=== PATIENT | female | born 1980 | race African-American/Black ===

== ENCOUNTER 2017-03-02 22:14 | Emergency (ER) | payer OTHER ==
[~2017-03-02] VITALS: Ht 160 cm; Wt 72.6 kg
[~2017-03-02 22:14] MED LIST: ALBU2.5V14 NEB; CHLO25CA9 PO; FLUT100D IH; MAGN400T22 PO; ONDA4TAB10 SL; PANT40TA5 PO; VENTOLIN HFA18 GM INH
[2017-03-02 22:20] VITALS: BP 130/72
--- NOTE | 2017-03-02 23:20 | PHYS DOC ---
Past Medical History Past Medical History: Asthma, Seizure Past Surgical History: No Surgical History Alcohol Use: Heavy Drug Use: None Adult General Chief Complaint Chief Complaint: VAGINAL BLEEDING HPI HPI Patient is a 36 year old female who presents requesting test. She states her LMP was 516. States she took a home test was positive but she wants to confirm whether that is true. She is . Reports vaginal spotting 2 weeks ago. Denies fevers/chills, nausea/vomiting, abdominal pain, current vaginal bleeding, dysuria/hematuria. Review of Systems Review of Systems Constitutional: Denies fever or chills Respiratory: Denies cough or shortness of breath Cardiovascular: Denies chest pain or edema GI: Denies abdominal pain, nausea, vomiting, or diarrhea : Denies dysuria or hematuria Musculoskeletal: Denies back pain Integument: Denies rash or skin lesions Neurologic: Denies headache Allergies Allergies Allergies Coded Allergies Type Severity Reaction Last Updated Verified No Known Drug Allergies 12/02/15 No Physical Exam Physical Exam Constitutional: Well developed, well nourished, no acute distress, non-toxic appearance. HENT: Normocephalic, atraumatic Eyes: conjunctiva normal, no discharge. Cardiovascular: RRR, no murmurs, no edema. Lungs & Thorax: LCTAB, no wheezing, no respiratory distress. Abdomen: soft, nontender, nondistended. Skin: Warm, dry, no erythema, no rash. Back: No CVA tenderness. Extremities: No tenderness, no edema. Neurologic: Alert and oriented X 3 Current Patient Data Vital Signs Vital Signs Date Time Temp Pulse Resp B/P (MAP) Pulse Ox O2 Delivery O2 Flow Rate FiO2 03/02/17 22:20 98.2 103 18 130/72 (91) 97 Room Air 98.2 Lab Values Laboratory Tests Test 03/02/17 21:35 POC Urine HCG, Qualitative Hcg positive (Negative) EKG EKG [] Radiology/Procedures Radiology/Procedures [] Course & Med Decision Making Course & Med Decision Making Pertinent Labs and Imaging studies reviewed. (See chart for details) The patient presents requesting test. She had positive urine test here. Asymptomatic otherwise. Discussed results, recommend vitamin & follow up in OB clinic with Dr. Thacker for routine care. Come back for severe pain, uncontrolled vomiting, heavy bleeding requiring >1 pad per hour, any otherwise worsening condition. Discharged home in stable condition. [] Dragon Disclaimer Dragon Disclaimer This electronic medical record was generated, in whole or in part, using a voice recognition dictation system. Departure Departure Impression: Primary Impression: Positive test Disposition: HOME, SELF-CARE Condition: STABLE Referrals: GRANT THACKER MD Patient Instructions: - First Trimester, [id number] Additional Instructions: You were seen in the emergency department today for test which was positive. Take vitamins and follow-up with Dr. Thacker in the OB clinic. Return to the emergency department for severe pain, uncontrolled vomiting, heavy bleeding requiring greater than 1 pad per hour, any otherwise worsening condition. GAY BALDERRAMA MD Mar 02, 2017 23:20
== END 2017-03-02 23:40 | disposition home or self-care (01) ==
LOC: ER 22:14
DX: Z32.01 Encounter for pregnancy test, result positive (principal); J45.909 Unspecified asthma, uncomplicated
CPT/HCPCS: 81025; 99282

== ENCOUNTER 2017-05-30 09:44 | Inpatient (IN) | payer OTHER ==
[~2017-05-30] VITALS: Ht 160 cm; Wt 74.8 kg
[2017-05-30] MEDS ORDERED: IV NORMAL SALINE 1000ML BAG 1,000 ML IV SCH (10:15)
[2017-05-30] MEDS ORDERED: ONDANSETRON PF 4 MG/2 ML VIAL. IV ONE (10:15)
[2017-05-30] MEDS ORDERED: IV NORMAL SALINE 1000ML BAG 1,000 ML IV ONE (10:30)
--- NOTE | 2017-05-30 10:36 | PHYS DOC ---
Past Medical History Past Medical History: Asthma, Seizure Past Surgical History: No Surgical History Alcohol Use: Sober Drug Use: None Social History Narrative: NOT CURRENTLY DRINKING DUE TO Adult General Chief Complaint Chief Complaint: ABDOMINAL PAIN IN HPI HPI Patient is a 36 year old female who presents with complaint of lower abdominal pain. Patient states that her symptoms started last night and have been worsening since then. Patient states that she is approximately 19 weeks at this time. Patient states that she was admitted to [facility] 2 weeks ago for similar symptoms. Patient states that she has been struggling with vomiting during her current . Patient states that her lower abdominal pain is crampy and rates it 8 out of 10 currently. Patient denies any associated fevers, vaginal bleeding, or abnormal discharge. The patient follows at [facility] for her care. Patient has not been able to tolerate solid or liquid oral intake over the past few days. Review of Systems Review of Systems Constitutional: Generalized fatigue, denies fever or chills [] Eyes: Denies change in visual acuity, redness, or eye pain [] HENT: Denies nasal congestion or sore throat [] Respiratory: Denies cough or shortness of breath [] Cardiovascular: Denies chest pain or edema[] GI: Abdominal pain, nausea, vomiting, denies bloody stools or diarrhea [] : Denies dysuria or hematuria [] Musculoskeletal: Denies back pain or joint pain [] Integument: Denies rash or skin lesions [] Neurologic: Denies headache, focal weakness or sensory changes [] Current Medications Current Medications Current Medications Medications (Trade) Dose Ordered Sig/Kaylin Start Time Stop Time Status Last Admin Dose Admin Acetaminophen (Tylenol) 650 mg PRN Q4HRS PRN 05/30/17 12:30 05/31/17 12:29 Dextrose/Sodium Chloride 1,000 ml @ 125 mls/hr 1X ONCE 05/30/17 12:30 05/30/17 20:29 Ondansetron HCl (Zofran) 4 mg PRN Q8HRS PRN 05/30/17 12:30 05/31/17 12:29 Sodium Chloride 1,000 ml @ 1,000 mls/hr 1X ONCE 05/30/17 10:30 05/30/17 11:29 DC 05/30/17 11:20 1,000 MLS/HR Allergies Allergies Allergies Coded Allergies Type Severity Reaction Last Updated Verified No Known Drug Allergies 12/02/15 No Physical Exam Physical Exam Constitutional: Alert, afebrile, appears ill. [] HENT: Normocephalic, atraumatic, bilateral external ears normal, oropharynx moist, no oral exudates, nose normal. [] Eyes: PERRLA, EOMI, conjunctiva normal, no discharge. [] Neck: Normal range of motion, no tenderness, supple, no stridor. [] Cardiovascular: Tachycardia, regular rhythm, no murmur [] Lungs & Thorax: Bilateral breath sounds clear to auscultation [] Abdomen: Bowel sounds normal, soft, mild suprapubic tenderness to palpation, no guarding or rebound tenderness, no masses, no pulsatile masses. Pelvic: Normal external exam, malodorous discharge in vaginal canal, no bleeding , no cervical motion tenderness, no midline or bilateral adnexal tenderness on bimanual exam[] Skin: Warm, dry, no erythema, no rash. [] Back: No tenderness, no CVA tenderness. [] Extremities: No tenderness, no cyanosis, no clubbing, ROM intact, no edema. [] Neurologic: Alert and oriented X 3, normal motor function, normal sensory function, no focal deficits noted. [] Current Patient Data Vital Signs Vital Signs Date Time Temp Pulse Resp B/P (MAP) Pulse Ox O2 Delivery O2 Flow Rate FiO2 05/30/17 12:26 89 19 138/80 (99) 99 Room Air 05/30/17 10:01 97.7 97.7 Lab Values Laboratory Tests Test 05/30/17 09:53 05/30/17 09:55 05/30/17 10:35 POC Urine HCG, Qualitative Hcg positive (Negative) Urine Collection Type Unknown Urine Color Yellow Urine Clarity Clear Urine pH 6.0 Urine Specific [place] 1.020 Urine Protein 100 mg/dL (NEG-TRACE) Urine Glucose (UA) Negative mg/dL (NEG) Urine Ketones (Stick) >=80 mg/dL (NEG) Urine Blood Small (NEG) Urine Nitrite Negative (NEG) Urine Bilirubin Negative (NEG) Urine Urobilinogen Dipstick 1.0 mg/dL (0.2 mg/dL) Urine Leukocyte Esterase Negative (NEG) Urine RBC 1-2 /HPF (0-2) Urine WBC 1-4 /HPF (0-4) Urine Squamous Epithelial Cells Mod /LPF Urine Bacteria Few /HPF (0-FEW) Urine Mucus Marked /LPF White Blood Count 8.2 x10^3/uL (4.0-11.0) Red Blood Count 3.95 x10^6/uL (3.50-5.40) Hemoglobin 12.6 g/dL (12.0-15.5) Hematocrit 36.5 % (36.0-47.0) Mean Corpuscular Volume 93 fL (79-100) Mean Corpuscular Hemoglobin 32 pg (25-35) Mean Corpuscular Hemoglobin Concent 35 g/dL (31-37) Red Cell Distribution Width 16.7 % (11.5-14.5) H Platelet Count 231 x10^3/uL (140-400) # Neutrophils (%) (Auto) 70 % (31-73) Lymphocytes (%) (Auto) 24 % (24-48) Monocytes (%) (Auto) 5 % (0-9) Eosinophils (%) (Auto) 1 % (0-3) Basophils (%) (Auto) 1 % (0-3) Neutrophils # (Auto) 5.7 x10^3uL (1.8-7.7) Lymphocytes # (Auto) 2.0 x10^3/uL (1.0-4.8) Monocytes # (Auto) 0.4 x10^3/uL (0.0-1.1) Eosinophils # (Auto) 0.0 x10^3/uL (0.0-0.7) Basophils # (Auto) 0.1 x10^3/uL (0.0-0.2) Sodium Level 134 mmol/L (136-145) L Potassium Level 4.4 mmol/L (3.5-5.1) Chloride Level 97 mmol/L (98-107) L Carbon Dioxide Level 10 mmol/L (21-32) *L Anion Gap 27 (6-14) H Blood Urea Nitrogen 5 mg/dL (7-20) L Creatinine 1.0 mg/dL (0.6-1.0) Estimated GFR (Cockcroft-Gault) 76.3 BUN/Creatinine Ratio 5 (6-20) L Glucose Level 83 mg/dL (70-99) Calcium Level 9.1 mg/dL (8.5-10.1) Magnesium Level 1.9 mg/dL (1.8-2.4) Total Bilirubin 1.1 mg/dL (0.2-1.0) H Aspartate Amino Transferase (AST) 48 U/L (15-37) H Alanine Aminotransferase (ALT) 23 U/L (14-59) Alkaline Phosphatase 137 U/L (46-116) H Total Protein 8.3 g/dL (6.4-8.2) H Albumin 3.4 g/dL (3.4-5.0) Albumin/Globulin Ratio 0.7 (1.0-1.7) L Laboratory Tests 05/30/17 10:35 Laboratory Tests 05/30/17 10:35 Microbiology 05/30/17 Wet Prep - Final, Complete EKG EKG Not performed[] Radiology/Procedures Radiology/Procedures Limited bedside ultrasound performed and interpreted by myself: Intrauterine , heart rate 173 bpm, frequent movements.[] Course & Med Decision Making Course & Med Decision Making Pertinent Labs and Imaging studies reviewed. (See chart for details) Patient started on IV fluids and Zofran in the emergency department. After Zofran and 2 L of IV fluids, the patient states that she does not feel much better and is still unable to tolerate oral intake. Patient's lab work is consistent with signs of severe dehydration. The patient's heart rate also appears at the upper limits of normal. The patient will need admission to the hospital for IV fluids and symptomatic control. I spoke with Dr. Muñoz of [facility] who accepted care patient in hospital. Dragon Disclaimer Dragon Disclaimer This electronic medical record was generated, in whole or in part, using a voice recognition dictation system. Departure Departure Impression: Primary Impression: Hyperemesis gravidarum Additional Impression: Dehydration Disposition: ADMITTED INPATIENT Admitting Physician: Other Condition: STABLE Referrals: MANDEEP REED (PCP) Problem Qualifiers KRYSTLE WALL MD May 30, 2017 10:36
[2017-05-30 10:37] LABS: BILIRUBIN,URINE NEGATIVE (NEG); GLUCOSE,URINE NEGATIVE (NEG); NITRITE,URINE NEGATIVE (NEG); PROTEIN,URINE 100 mg/dL (NEG-TRACE)
[2017-05-30 10:45] LABS: SQUAMOUS EPITHELIAL CELL,UR MOD /LPF
[2017-05-30 10:46] LABS: BACTERIA,URINE FEW /HPF (0-FEW)
[2017-05-30 10:52] LABS: BASO # 0.1 x10^3/uL (0.0-0.2); BASO % 1 % (0-3); EOS % 1 % (0-3); HEMATOCRIT 36.5 % (36.0-47.0); HEMOGLOBIN 12.6 g/dL (12.0-15.5); LYMPH % 24 % (24-48); MEAN CORPUSCULAR HEMOGLOBIN 32 pg (25-35); MEAN CORPUSCULAR HGB CONC 35 g/dL (31-37); MEAN CORPUSCULAR VOLUME 93 fL (79-100); MONO % 5 % (0-9); NEUT % 70 % (31-73); PLATELET COUNT 231 x10^3/uL (140-400); RED BLOOD COUNT 3.95 x10^6/uL (3.50-5.40); RED CELL DISTRIBUTION WIDTH 16.7 % (11.5-14.5); WHITE BLOOD COUNT 8.2 x10^3/uL (4.0-11.0)
[2017-05-30 11:04] LABS: ALBUMIN 3.4 g/dL (3.4-5.0); ALBUMIN/GLOBULIN RATIO 0.7 (1.0-1.7); CALCIUM 9.1 mg/dL (8.5-10.1); GFR 76.3; MAGNESIUM 1.9 mg/dL (1.8-2.4); POTASSIUM 4.4 mmol/L (3.5-5.1); TOTAL BILIRUBIN 1.1 mg/dL (0.2-1.0); TOTAL PROTEIN 8.3 g/dL (6.4-8.2)
[2017-05-30] MEDS ORDERED: ONDANSETRON PF 4 MG/2 ML VIAL. IV PRN ×2 (12:30→15:45)
[2017-05-30] MEDS ORDERED: ACETAMINOPHEN 325 MG TABLET. PO PRN (12:30)
[2017-05-30] MEDS ORDERED: IV DEXTROSE 5 %-0.45 % NACL 1,000 ML IV ONE (12:30)
[2017-05-30 15:10] VITALS: BP 118/72
[2017-05-30] MEDS ORDERED: METOCLOPRAMIDE HCL 10 MG/2 ML VIAL. IV PRN (15:45)
--- NOTE | 2017-05-30 16:49 | PDOC1 ---
OB - History Hx of Present Care: Limited Care Ultrasounds: Other (U/S at [facility]. Requesting records.) Obstetrical Complications: Hyperemesis Medical Complications: None Past Family/Social History * Past Medical, Surgical, Family and Obstetric Histories reviewed from chart. Rubella: Unknown RPR/VDRL: Unknown GBS Status: Unknown HBsAG: Unknown OB - Chief Complaint & HPI Date of Admission: Date of Admission: May 30, 2017 at 12:22 Chief Complaint/History : 9 Para: 5 EGA: 19 Reason for admission: observation (hyperemesis) Admission Nurse Assessment Rev: Yes Problems: OB - Admission Exam Physical Exam Vitals: VS - Last 72 Hours, by Label Date Time Temp Pulse Resp B/P (MAP) Pulse Ox O2 Delivery O2 Flow Rate FiO2 05/30/17 14:26 80 19 118/72 (87) 99 Room Air 05/30/17 13:26 79 19 116/76 (89) 99 Room Air 05/30/17 12:45 78 20 94/54 (67) 99 Room Air 05/30/17 12:26 89 20 138/80 (99) 100 Room Air 05/30/17 12:26 89 19 138/80 (99) 99 Room Air 05/30/17 11:54 82 19 132/73 (92) 99 Room Air 05/30/17 10:54 85 18 125/74 (91) 99 Room Air 05/30/17 10:01 97.7 94 18 129/80 (96) 100 Room Air 97.7 05/30/17 09:54 94 18 129/80 (96) 100 Room Air HEENT: Other (dry mucous membranes) Heart: Regular Rate Lungs: Clear Abdomen: Gravid, Non tender, Soft Extremities: No tenderness or swelling Reflexes: Normal Cervical Dilatation: None Effacement: 0% Station: Ballotable Membranes: Intact Heart Rate: Normal Contractions on Admission: None Text A: 19 wks IUP Hyperemesis Gravidarum Grand Multip P: Observation, IV hydration, antiemetics and ice chips. Advance diet tomorrow. TEJAL PLAZA Jr, MD May 30, 2017 16:49
[2017-05-30 20:00] VITALS: BP 114/72
[2017-05-30] MEDS ORDERED: METO10TA81 PO (20:37)
[2017-05-30] MEDS ORDERED: ONDA8TAB9 PO (20:38)
== END 2017-05-30 20:20 | disposition home or self-care (01) | DRG 781 ==
LOC: ER 09:44 → 3 NORTH 12:22
PROVIDERS: ADMIT Obstetrics & Gynecology; ATTEND Obstetrics & Gynecology
DX: O21.0 Mild hyperemesis gravidarum (principal); E86.0 Dehydration; O99.282 Endocrine, nutritional and metabolic diseases complicating pregnancy, second trimester; O99.512 Diseases of the respiratory system complicating pregnancy, second trimester; J45.909 Unspecified asthma, uncomplicated; O09.522 Supervision of elderly multigravida, second trimester; Z3A.19 19 weeks gestation of pregnancy
CPT/HCPCS: 36415; 80053; 81001; 81025; 83735; 85025; 87491; 87591; 96361; 96374; J2405; J7030; Q0111; 99285-25

== ENCOUNTER 2017-11-06 21:59 | Emergency (ER) | payer OTHER ==
[2017-11-06 23:11] LABS: BILIRUBIN,URINE NEGATIVE (NEG); CLARITY,URINE CLEAR; COLOR,URINE YELLOW; GLUCOSE,URINE NEGATIVE (NEG); NITRITE,URINE NEGATIVE (NEG); PH,URINE 6.5; PROTEIN,URINE NEGATIVE (NEG-TRACE)
[2017-11-06 23:19] LABS: BACTERIA,URINE FEW /HPF (0-FEW); SQUAMOUS EPITHELIAL CELL,UR MOD /LPF; WBC,URINE 20-40 /HPF (0-4)
[2017-11-07] MEDS: KETOROLAC 30 MG/ML INJ. IM (00:20)
[2017-11-07] MEDS: CEPHALEXIN 250 MG CAPSULE. PO (00:24)
== END 2017-11-07 00:26 | disposition home or self-care (01) ==
LOC: ER 11-07 00:26
DX: N39.0 Urinary tract infection, site not specified (principal); J45.909 Unspecified asthma, uncomplicated; Z98.890 Other specified postprocedural states
CPT/HCPCS: 81001; 87086; 93005; 96372; 99285-25; J1885

== ENCOUNTER 2018-01-08 12:56 | Emergency (ER) | payer OTHER ==
[2018-01-08] MEDS: IV NORMAL SALINE 1000ML BAG 1,000 ML IV ×2 (13:32→13:34)
[2018-01-08 13:46] LABS: BASO % 1 % (0-3); EOS # 0.1 x10^3/uL (0.0-0.7); EOS % 3 % (0-3); HEMATOCRIT 36.1 % (36.0-47.0); LYMPH # 3.1 x10^3/uL (1.0-4.8); LYMPH % 71 % (24-48); MEAN CORPUSCULAR HEMOGLOBIN 30 pg (25-35); MEAN CORPUSCULAR HGB CONC 33 g/dL (31-37); MEAN CORPUSCULAR VOLUME 90 fL (79-100); MONO # 0.2 x10^3/uL (0.0-1.1); MONO % 5 % (0-9); NEUT # 0.8 x10^3uL (1.8-7.7); NEUT % 19 % (31-73); PLATELET COUNT 259 x10^3/uL (140-400); RED BLOOD COUNT 4.02 x10^6/uL (3.50-5.40); RED CELL DISTRIBUTION WIDTH 21.5 % (11.5-14.5); WHITE BLOOD COUNT 4.3 x10^3/uL (4.0-11.0)
[2018-01-08 13:48] LABS: INR 1.2 (0.8-1.1); PARTIAL THROMBOPLASTIN TIME 30 SEC (24-38); PROTHROMBIN TIME PATIENT 14.2 SEC (11.7-14.0)
[2018-01-08 13:50] LABS: ADD MAN DIFF? YES; ANION GAP 18 (6-14); BLOOD UREA NITROGEN 6 mg/dL (7-20); BUN/CREATININE RATIO 6 (6-20); CALCIUM 9.2 mg/dL (8.5-10.1); CARBON DIOXIDE 21 mmol/L (21-32); CHLORIDE 103 mmol/L (98-107); GFR 75.9; GLUCOSE 95 mg/dL (70-99); POTASSIUM 3.1 mmol/L (3.5-5.1); SODIUM 142 mmol/L (136-145)
[2018-01-08 13:53] LABS: NEG OBC SER NEG; POS OBC SER POS; PREG TEST PT QUAL NEGATIVE (NEG)
[2018-01-08 13:56] LABS: ALBUMIN 3.2 g/dL (3.4-5.0); ALBUMIN/GLOBULIN RATIO 0.7 (1.0-1.7); ALK PHOS 320 U/L (46-116); ALT (SGPT) 141 U/L (14-59); AST (SGOT) 539 U/L (15-37); LIPASE 46 U/L (73-393); MAGNESIUM 1.6 mg/dL (1.8-2.4); TOTAL BILIRUBIN 0.9 mg/dL (0.2-1.0); TOTAL PROTEIN 7.7 g/dL (6.4-8.2)
[2018-01-08 13:58] LABS: TROPONINI < 0.017 ng/mL (0.000-0.055)
[2018-01-08 14:04] LABS: THYROID STIM HORMONE (TSH) 2.017 uIU/mL (0.358-3.74)
[2018-01-08 14:04] LABS: FREE T4 0.77 ng/dL (0.76-1.46)
[2018-01-08 14:05] LABS: CKMB MASS < 0.5 ng/mL (0.0-3.6); CREATINE KINASE 44 U/L (26-192)
[2018-01-08 14:07] LABS: ETHANOL 199 mg/dL (0-10)
[2018-01-08 14:10] LABS: BILIRUBIN,URINE NEGATIVE (NEG); CLARITY,URINE CLEAR; COLOR,URINE YELLOW; GLUCOSE,URINE NEGATIVE (NEG); NITRITE,URINE NEGATIVE (NEG); PROTEIN,URINE 30 mg/dL (NEG-TRACE); UROBILINOGEN,URINE 0.2 mg/dL (0.2 mg/dL)
[2018-01-08 14:13] LABS: BARBITURATES NEG (NEG); BENZODIAZEPINES POS (NEG); CANNABINOIDS NEG (NEG); COCAINE NEG (NEG); METHADONE NEG (NEG); OPIATES NEG (NEG); PHENCYCLIDINE NEG (NEG)
[2018-01-08 14:15] LABS: AMPHETAMINE/METHAMPHETAMINE NEG (NEG); ETHANOL, URINE POS (NEG)
[2018-01-08 14:20] LABS: BACTERIA,URINE FEW /HPF (0-FEW); HYALINE CASTS, URINE FEW /HPF; RBC,URINE 0 /HPF (0-2); SQUAMOUS EPITHELIAL CELL,UR FEW /LPF
[2018-01-08 14:35] LABS: % EOS 4 % (0-5); % LYMPHS 75 % (24-48); % MONOS 2 % (0-10); % SEGS 19 % (35-66)
[2018-01-08 14:37] LABS: ANISOCYTOSIS MOD; PLT ESTIMATE ADEQUATE (ADEQUATE); POLYCHROMASIA SLIGHT
[2018-01-08] MEDS: POTASSIUM CHLORIDE 20 MEQ TABLET.ER. PO (14:45)
[2018-01-08] MEDS: MAGNESIUM OXIDE 400 MG TABLET PO (14:45)
== END 2018-01-08 14:55 | disposition home or self-care (01) ==
LOC: ER 12:56
DX: R00.2 Palpitations (principal); E87.6 Hypokalemia; E83.42 Hypomagnesemia; R79.89 Other specified abnormal findings of blood chemistry; I48.91 Unspecified atrial fibrillation; J45.909 Unspecified asthma, uncomplicated; F10.10 Alcohol abuse, uncomplicated
CPT/HCPCS: 36415; 80053; 80307; 81001; 82553; 83690; 83735; 84439; 84443; 84484; 84703; 85007; 85025; 85610; 85730; 93005; 99285-25; G0480; J7030

== ENCOUNTER 2018-03-21 10:53 | Emergency (ER) | payer OTHER ==
[2018-03-21 11:44] LABS: URINE HCG POC HCG NEGATIVE (Negative)
[2018-03-21 12:09] LABS: ADD MAN DIFF? NO
[2018-03-21 12:13] LABS: BASO # 0.1 x10^3/uL (0.0-0.2); BASO % 1 % (0-3); EOS % 1 % (0-3); HEMATOCRIT 39.2 % (36.0-47.0); HEMOGLOBIN 13.2 g/dL (12.0-15.5); LYMPH # 3.3 x10^3/uL (1.0-4.8); LYMPH % 66 % (24-48); MEAN CORPUSCULAR HEMOGLOBIN 29 pg (25-35); MEAN CORPUSCULAR HGB CONC 34 g/dL (31-37); MEAN CORPUSCULAR VOLUME 85 fL (79-100); MONO # 0.3 x10^3/uL (0.0-1.1); MONO % 7 % (0-9); NEUT # 1.2 x10^3uL (1.8-7.7); NEUT % 25 % (31-73); PLATELET COUNT 247 x10^3/uL (140-400); RED BLOOD COUNT 4.64 x10^6/uL (3.50-5.40); RED CELL DISTRIBUTION WIDTH 20.6 % (11.5-14.5)
[2018-03-21] MEDS: ONDANSETRON PF 4 MG/2 ML VIAL. IV (12:16)
[2018-03-21] MEDS: IV NORMAL SALINE 1000ML BAG 1,000 ML IV (12:16)
[2018-03-21 12:23] LABS: ANION GAP 17 (6-14); BLOOD UREA NITROGEN 10 mg/dL (7-20); BUN/CREATININE RATIO 10 (6-20); CALCIUM 8.7 mg/dL (8.5-10.1); CARBON DIOXIDE 23 mmol/L (21-32); CHLORIDE 101 mmol/L (98-107); GFR 75.9; GLUCOSE 76 mg/dL (70-99); POTASSIUM 3.7 mmol/L (3.5-5.1); SODIUM 141 mmol/L (136-145)
[2018-03-21 12:25] LABS: ETHANOL 245 mg/dL (0-10)
[2018-03-21 12:28] LABS: BILIRUBIN,URINE NEGATIVE (NEG); CLARITY,URINE CLEAR; COLOR,URINE YELLOW; GLUCOSE,URINE NEGATIVE (NEG); NITRITE,URINE NEGATIVE (NEG); PROTEIN,URINE 100 mg/dL (NEG-TRACE); UROBILINOGEN,URINE 0.2 mg/dL (0.2 mg/dL)
[2018-03-21 12:30] LABS: ALBUMIN 3.7 g/dL (3.4-5.0); ALBUMIN/GLOBULIN RATIO 0.9 (1.0-1.7); ALK PHOS 196 U/L (46-116); ALT (SGPT) 97 U/L (14-59); AST (SGOT) 206 U/L (15-37); TOTAL BILIRUBIN 0.6 mg/dL (0.2-1.0); TOTAL PROTEIN 7.9 g/dL (6.4-8.2)
[2018-03-21 12:34] LABS: BARBITURATES POS (NEG); BENZODIAZEPINES NEG (NEG); CANNABINOIDS NEG (NEG); COCAINE NEG (NEG); METHADONE NEG (NEG); OPIATES NEG (NEG); PHENCYCLIDINE NEG (NEG)
[2018-03-21 12:35] LABS: AMPHETAMINE/METHAMPHETAMINE NEG (NEG); ETHANOL, URINE POS (NEG)
[2018-03-21 12:44] LABS: BACTERIA,URINE MODERATE /HPF (0-FEW); HYALINE CASTS, URINE MODERATE /HPF; RBC,URINE 0 /HPF (0-2); SQUAMOUS EPITHELIAL CELL,UR MOD /LPF
[2018-03-21 13:21] LABS: ANISOCYTOSIS SLIGHT; PLT ESTIMATE ADEQUATE (ADEQUATE)
[2018-03-21] MEDS: LORazepam 1 MG TABLET PO (13:50)
== END 2018-03-21 13:55 | disposition home or self-care (01) ==
LOC: ER 10:53
DX: F10.920 Alcohol use, unspecified with intoxication, uncomplicated (principal); F10.230 Alcohol dependence with withdrawal, uncomplicated; J45.909 Unspecified asthma, uncomplicated
CPT/HCPCS: 36415; 80053; 80307; 81001; 81025; 85025; 87086; 96374; 96375; 99284-25; G0480; J2060; J2405; J7030

== ENCOUNTER 2019-07-05 14:44 | Inpatient (IN) | payer OTHER ==
[~2019-07-05] VITALS: Ht 160 cm; Wt 73.5 kg
[2019-07-05 07:45] VITALS: BP 105/65
[~2019-07-05 14:44] MED LIST changes: +CEPH-264 PO; +CIPR250T30 PO; +METO10TA81 PO; +ONDA8TAB9 PO; -PANT40TA5 PO; +PANT40TA77 PO; +TRAZ-86 PO
[2019-07-05] MEDS ORDERED: MULTIVIT INFUSN,ADULT 4,VIT K 10 ML, THIAMINE INJ 100 MG, FOLIC ACID INJ 1 MG in IV NOR... IV ONE (15:00)
[2019-07-05] MEDS ORDERED: ONDANSETRON PF 4 MG/2 ML VIAL. IV ONE (15:00)
[2019-07-05 15:14] LABS: BASO # 0.1 x10^3/uL (0.0-0.2); BASO % 1 % (0-3); EOS # 0.1 x10^3/uL (0.0-0.7); EOS % 2 % (0-3); HEMATOCRIT 42.9 % (36.0-47.0); HEMOGLOBIN 14.3 g/dL (12.0-15.5); LYMPH # 2.1 x10^3/uL (1.0-4.8); LYMPH % 30 % (24-48); MEAN CORPUSCULAR HEMOGLOBIN 31 pg (25-35); MEAN CORPUSCULAR HGB CONC 33 g/dL (31-37); MEAN CORPUSCULAR VOLUME 92 fL (79-100); MONO # 0.2 x10^3/uL (0.0-1.1); MONO % 3 % (0-9); NEUT # 4.4 x10^3/uL (1.8-7.7); NEUT % 64 % (31-73); PLATELET COUNT 164 x10^3/uL (140-400); RED BLOOD COUNT 4.66 x10^6/uL (3.50-5.40); RED CELL DISTRIBUTION WIDTH 13.7 % (11.5-14.5); WHITE BLOOD COUNT 6.9 x10^3/uL (4.0-11.0)
[2019-07-05 15:47] LABS: CALCIUM 9.3 mg/dL (8.5-10.1); CREATININE 0.9 mg/dL (0.6-1.0); GFR 85.2; POTASSIUM 4.1 mmol/L (3.5-5.1)
--- NOTE | 2019-07-05 15:48 | PHYS DOC ---
Past Medical History Past Medical History: Alcoholism, Asthma, Seizure, UTI, Other Additional Past Medical Histor: sepsis, ETOH abuse Past Surgical History: Alcohol Use: Heavy Additional Information: PT SAYS SHE WAS SOBER FOR A YEAR BUT STARTED DRINKING AGAIN 2 WKS AGO. Drug Use: None Adult General Chief Complaint Chief Complaint: WITHDRAWL HPI HPI Patient is a 38 year old female with history of alcoholism, asthma, who presents to the ED today requesting to detox. Patient states she drinks a fifth of a pint of hard liquor every day and stopped 2 days ago in preparation to go to [facility]. She states she started having nausea, vomiting, shaking and headache this morning. Patient denies any suicidal or homicidal ideations. Review of Systems Review of Systems Constitutional: Denies fever or chills [] Eyes: Denies change in visual acuity, redness, or eye pain [] HENT: Denies nasal congestion or sore throat [] Respiratory: Denies cough or shortness of breath [] Cardiovascular: No additional information not addressed in HPI [] GI: Denies abdominal pain, nausea, vomiting, bloody stools or diarrhea [] : Denies dysuria or hematuria [] Musculoskeletal: Denies back pain or joint pain [] Integument: Denies rash or skin lesions [] Neurologic: Denies headache, focal weakness or sensory changes [] Psych: withdrawal symptoms All other systems were reviewed and found to be within normal limits, except as documented in this note. Current Medications Current Medications Current Medications Medications (Trade) Dose Ordered Sig/Kaylin Start Time Stop Time Status Last Admin Dose Admin Lorazepam (Ativan Inj) 1 mg 1X ONCE 07/05/19 15:00 07/05/19 15:01 DC 07/05/19 15:12 1 MG Multivitamins 10 ml/Thiamine HCl 100 mg/Folic Acid 1 mg/Sodium Chloride 1,011.2 ml @ 1,000 mls/ hr 1X ONCE 07/05/19 15:00 07/05/19 16:00 DC 07/05/19 15:12 1,000 MLS/HR Ondansetron HCl (Zofran) 4 mg 1X ONCE 07/05/19 15:00 07/05/19 15:01 DC 07/05/19 15:12 4 MG Allergies Allergies Allergies Coded Allergies Type Severity Reaction Last Updated Verified No Known Drug Allergies 12/02/15 No Physical Exam Physical Exam Constitutional: Well developed, well nourished, no acute distress, non-toxic appearance. [] HENT: Normocephalic, atraumatic, bilateral external ears normal, oropharynx moist, no oral exudates, nose normal. [] Eyes: PERRLA, EOMI, conjunctiva normal, no discharge. [] Neck: Normal range of motion, no tenderness, supple, no stridor. [] Cardiovascular:Heart rate regular rhythm, no murmur [] Lungs & Thorax: Bilateral breath sounds clear to auscultation [] Abdomen: Bowel sounds normal, soft, no tenderness, no masses, no pulsatile masses. [] Skin: Warm, dry, no erythema, no rash. [] Back: No tenderness, no CVA tenderness. [] Extremities: No tenderness, no cyanosis, no clubbing, ROM intact, no edema. [] Neurologic: Alert and oriented X 3, normal motor function, normal sensory function, no focal deficits noted. Cranial nerves II-XII intact Psychologic: flat affect, tear full. Tremors. Current Patient Data Vital Signs Vital Signs Date Time Temp Pulse Resp B/P (MAP) Pulse Ox O2 Delivery O2 Flow Rate FiO2 07/05/19 17:16 88 14 120/69 (86) 97 Room Air 07/05/19 14:45 98.2 98.2 Lab Values Laboratory Tests Test 07/05/19 15:00 White Blood Count 6.9 x10^3/uL (4.0-11.0) Red Blood Count 4.66 x10^6/uL (3.50-5.40) Hemoglobin 14.3 g/dL (12.0-15.5) Hematocrit 42.9 % (36.0-47.0) Mean Corpuscular Volume 92 fL (79-100) Mean Corpuscular Hemoglobin 31 pg (25-35) Mean Corpuscular Hemoglobin Concent 33 g/dL (31-37) Red Cell Distribution Width 13.7 % (11.5-14.5) Platelet Count 164 x10^3/uL (140-400) Neutrophils (%) (Auto) 64 % (31-73) Lymphocytes (%) (Auto) 30 % (24-48) Monocytes (%) (Auto) 3 % (0-9) Eosinophils (%) (Auto) 2 % (0-3) Basophils (%) (Auto) 1 % (0-3) Neutrophils # (Auto) 4.4 x10^3/uL (1.8-7.7) Lymphocytes # (Auto) 2.1 x10^3/uL (1.0-4.8) Monocytes # (Auto) 0.2 x10^3/uL (0.0-1.1) Eosinophils # (Auto) 0.1 x10^3/uL (0.0-0.7) Basophils # (Auto) 0.1 x10^3/uL (0.0-0.2) Sodium Level 141 mmol/L (136-145) Potassium Level 4.1 mmol/L (3.5-5.1) Chloride Level 97 mmol/L (98-107) L Carbon Dioxide Level 21 mmol/L (21-32) Anion Gap 23 (6-14) H Blood Urea Nitrogen 11 mg/dL (7-20) Creatinine 0.9 mg/dL (0.6-1.0) Estimated GFR (Cockcroft-Gault) 85.2 BUN/Creatinine Ratio 12 (6-20) Glucose Level 58 mg/dL (70-99) L Calcium Level 9.3 mg/dL (8.5-10.1) Magnesium Level 1.6 mg/dL (1.8-2.4) L Total Bilirubin 1.4 mg/dL (0.2-1.0) H Aspartate Amino Transferase (AST) 59 U/L (15-37) H Alanine Aminotransferase (ALT) 44 U/L (14-59) Alkaline Phosphatase 126 U/L (46-116) H Total Protein 8.3 g/dL (6.4-8.2) H Albumin 4.3 g/dL (3.4-5.0) Albumin/Globulin Ratio 1.1 (1.0-1.7) Lipase 20 U/L (73-393) L Salicylates Level < 2.8 mg/dL (2.8-20.0) L Salicylate Last Dose Date Unk Salicylate Last Dose Time Unk Acetaminophen Level < 2 mcg/ml (10-30) L Acetaminophen Last Dose Date Unk Acetaminophen Last Dose Time Unk Ethyl Alcohol Level 77 mg/dL (0-10) H Laboratory Tests 07/05/19 15:00 Laboratory Tests 07/05/19 15:00 EKG EKG [] Radiology/Procedures Radiology/Procedures [] Course & Med Decision Making Course & Med Decision Making Pertinent Labs and Imaging studies reviewed. (See chart for details) This is a 38-year-old female patient who presents to the ED today for alcohol withdrawals. Patient stopped using alcohol 2 days ago. Currently has tremors, nausea, vomiting, headaches. CBC-no acute findings, CMP with Mag of 1.6, AST 59, ALT 44, ALK 126, alcohol level 77 Tahira from the PAT assessed patient, she reported hx of seizures during withdrawals. Tahira reports they will find placement for her tomorrow. Spoke with Dr. You who accepted patient for admission. Dragon Disclaimer Dragon Disclaimer This electronic medical record was generated, in whole or in part, using a voice recognition dictation system. Departure Departure Impression: Primary Impression: Alcohol withdrawal Disposition: ADMITTED INPATIENT Condition: STABLE Referrals: NO PCP (PCP) Problem Qualifiers Primary Impression: Alcohol withdrawal Complication of substance-induced condition: uncomplicated Qualified Codes: F10.230 - Alcohol dependence with withdrawal, uncomplicated MARC LYONS EVENTS AND PROMOTIONS ASSISTANT Jul 05, 2019 15:48
[2019-07-05 15:51] LABS: ACETAMIN < 2 mcg/ml (10-30); ETHANOL 77 mg/dL (0-10); SALIC < 2.8 mg/dL (2.8-20.0)
[2019-07-05 15:53] LABS: ALBUMIN 4.3 g/dL (3.4-5.0); ALBUMIN/GLOBULIN RATIO 1.1 (1.0-1.7); MAGNESIUM 1.6 mg/dL (1.8-2.4); TOTAL BILIRUBIN 1.4 mg/dL (0.2-1.0); TOTAL PROTEIN 8.3 g/dL (6.4-8.2)
[2019-07-05 18:51] LABS: BILIRUBIN,URINE NEGATIVE (NEG); COLOR,URINE YELLOW; NITRITE,URINE NEGATIVE (NEG); PROTEIN,URINE 100 mg/dL (NEG-TRACE); UROBILINOGEN,URINE 0.2 mg/dL (0.2 mg/dL)
[2019-07-05 18:54] LABS: BACTERIA,URINE MANY /HPF (0-FEW); CLARITY,URINE HAZY; SQUAMOUS EPITHELIAL CELL,UR FEW /LPF
[2019-07-05 18:55] LABS: RBC,URINE 0 /HPF (0-2)
[2019-07-05 18:58] LABS: BARBITURATES NEG (NEG); BENZODIAZEPINES NEG (NEG); CANNABINOIDS NEG (NEG); COCAINE NEG (NEG); METHADONE NEG (NEG); OPIATES NEG (NEG); PHENCYCLIDINE NEG (NEG)
[2019-07-05 19:01] LABS: AMPHETAMINE/METHAMPHETAMINE NEG (NEG)
--- NOTE | 2019-07-05 19:45 | NUR ---
The patient, DESMOND NAIDU, 38 y/o, F admitted by ALISSA NYE III, DO, was given written information regarding hospital policies, unit procedures and contact persons. Valuables were checked and left with her.
[2019-07-05] MEDS ORDERED: diphenhydrAMINE 50 MG/ML VIAL IVP PRN (21:30)
[2019-07-05] MEDS ORDERED: cloNIDine HCL 0.1 MG TABLET PO PRN (21:30)
[2019-07-05] MEDS ORDERED: HALOPERIDOL LACTATE 5 MG/ML VIAL. IVP PRN (21:30)
[2019-07-05] MEDS ORDERED: LORazepam 1 MG TABLET PO PRN ×2 (21:30)
[2019-07-05] MEDS ORDERED: chlordiazePOXIDE HCL 25 MG CAPSULE PO PRN ×2 (21:30)
[2019-07-05] MEDS: ONDANSETRON PF 4 MG/2 ML VIAL. IV PRN (22:37)
[2019-07-05 23:00] VITALS: BP 121/78
[2019-07-06 03:00] VITALS: BP 118/77
[2019-07-06 05:47] LABS: BASO % 0 % (0-3); EOS # 0.2 x10^3/uL (0.0-0.7); EOS % 4 % (0-3); HEMATOCRIT 34.9 % (36.0-47.0); HEMOGLOBIN 11.8 g/dL (12.0-15.5); LYMPH # 1.6 x10^3/uL (1.0-4.8); LYMPH % 40 % (24-48); MEAN CORPUSCULAR HEMOGLOBIN 31 pg (25-35); MEAN CORPUSCULAR HGB CONC 34 g/dL (31-37); MEAN CORPUSCULAR VOLUME 93 fL (79-100); MONO # 0.2 x10^3/uL (0.0-1.1); MONO % 5 % (0-9); NEUT % 51 % (31-73); PLATELET COUNT 107 x10^3/uL (140-400); RED BLOOD COUNT 3.77 x10^6/uL (3.50-5.40); RED CELL DISTRIBUTION WIDTH 13.6 % (11.5-14.5); WHITE BLOOD COUNT 3.9 x10^3/uL (4.0-11.0)
[2019-07-06 06:13] LABS: ALBUMIN 3.4 g/dL (3.4-5.0); CALCIUM 8.4 mg/dL (8.5-10.1); CREATININE 1.2 mg/dL (0.6-1.0); GFR 61.2; POTASSIUM 4.1 mmol/L (3.5-5.1); TOTAL BILIRUBIN 1.6 mg/dL (0.2-1.0); TOTAL PROTEIN 6.8 g/dL (6.4-8.2)
[2019-07-06 07:00] VITALS: BP 111/72
[2019-07-06] MEDS: MULTIVIT INFUSN,ADULT 4,VIT K 10 ML, THIAMINE INJ 100 MG, FOLIC ACID INJ 1 MG in IV NOR... IV SCH (07:58)
[2019-07-06] MEDS: ONDANSETRON PF 4 MG/2 ML VIAL. IV PRN (08:05)
--- NOTE | 2019-07-06 10:15 | NUR ---
Assumed pt care at this time. Pt in bed sleeping. Call light within reach. Will return to monitor.
[2019-07-06 11:00] VITALS: BP 100/64
--- NOTE | 2019-07-06 12:21 | PDOC1 ---
History and Physical Date of Admission Date of Admission DATE: 07/06/19 TIME: 12:21 History of Present Illness History of Present Illness Patient is a 38 year old female with history of alcoholism, asthma, was intox in ER last night, asking for help. Slept well today, feeling better She states she drinks a fifth of a pint of hard liquor every day and stopped a couple days ago, trying to stop, to f/u at [facility]. yesterady, nausea, vomiting, shaking and headache - overnight, started withdrawl treatment Past Medical History Cardiovascular: No pertinent hx Pulmonary: Asthma Psych: No pertinent hx Renal/: No pertinent hx Past Surgical History Past Surgical History: No pertinent history Family History Family History: Heart Disease Social History Smoke: No ALCOHOL: heavy Drugs: None Current Problem List Problem List Problems Medical Problems: (1) Alcohol withdrawal Status: Acute Current Medications Current Medications Current Medications Ondansetron HCl (Zofran) 4 mg 1X ONCE IV Last administered on 07/05/19at 15:12; Start 07/05/19 at 15:00; Stop 07/05/19 at 15:01; Status DC Lorazepam (Ativan Inj) 1 mg 1X ONCE IV Last administered on 07/05/19at 15:12; Start 07/05/19 at 15:00; Stop 07/05/19 at 15:01; Status DC Multivitamins 10 ml/Thiamine HCl 100 mg/Folic Acid 1 mg/Sodium Chloride 1,011.2 ml @ 1,000 mls/ hr 1X ONCE IV Last administered on 07/05/19at 15:12; Start 07/05/19 at 15:00; Stop 07/05/19 at 16:00; Status DC Ondansetron HCl (Zofran) 4 mg PRN Q8HRS PRN IV NAUSEA/VOMITING Last administered on 07/06/19at 08:05; Start 07/05/19 at 19:00; Stop 07/06/19 at 18:59 Lorazepam (Ativan Inj) 2 mg PRN Q15MIN PRN IV SEE COMMENTS Last administered on 07/05/19at 19:37; Start 07/05/19 at 19:00; Stop 07/06/19 at 08:00; Status DC Multivitamins 10 ml/Thiamine HCl 100 mg/Folic Acid 1 mg/Sodium Chloride 1,011.2 ml @ 100 mls/ hr DAILY IV Last administered on 07/06/19at 07:58; Start 07/06/19 at 09:00; Stop 07/10/19 at 19:07 Multivitamins (Thera M Plus) 1 tab DAILY PO ; Start 07/10/19 at 09:00 Folic Acid (Folic Acid) 1 mg DAILY PO ; Start 07/10/19 at 09:00 Thiamine Mononitrate (Vitamin B-1) 100 mg DAILY PO ; Start 07/10/19 at 09:00 Chlordiazepoxide (Librium) 50 mg PRN Q1HR PRN PO For CIWA 8-14; Start 07/05/19 at 21:30 Chlordiazepoxide (Librium) 100 mg PRN Q1HR PRN PO For CIWA 15 or greater; Start 07/05/19 at 21:30 Lorazepam (Ativan) 4 mg PRN Q1HR PRN PO For CIWA 8-14; Start 07/05/19 at 21:30 Lorazepam (Ativan) 8 mg PRN Q1HR PRN PO For CIWA 15 or greater; Start 07/05/19 at 21:30 Lorazepam (Ativan Inj) 2 mg PRN Q1HR PRN IV For CIWA 8-14 Last administered on 07/06/19at 08:05; Start 07/05/19 at 21:30 Lorazepam (Ativan Inj) 4 mg PRN Q1HR PRN IV For CIWA 15 or greater; Start 07/05/19 at 21:30 Haloperidol Lactate (Haldol Inj) 5 mg PRN Q4HRS PRN IVP Hallucinatns,Confusn,Delirium; Start 07/05/19 at 21:30 Diphenhydramine HCl (Benadryl) 25 mg PRN Q15MIN PRN IVP EPS symptoms 2'Haldol admin; Start 07/05/19 at 21:30 Clonidine HCl (Catapres) 0.1 mg PRN Q1HR PRN PO SBP > 180 or DBP > 100, MRX3; Start 07/05/19 at 21:30 Active Scripts Active Cipro (Ciprofloxacin Hcl) 250 Mg Tablet 500 Mg PO BID 7 Days Pantoprazole Sodium 40 Mg Tablet.dr 40 Mg PO DAILYAC Mag-Oxide (Magnesium Oxide) 400 Mg Tablet 400 Mg PO DAILY Chlordiazepoxide Hcl 25 Mg Capsule 25 Mg PO TID 1 pill tid for 2 days, then 1 pill bid for 2 days Zofran Odt (Ondansetron) 4 Mg Tab.rapdis 1 Tab SL PRN Q8HRS PRN Reported Trazodone Hcl 100 Mg Tablet 100 Mg PO DAILY Zofran (Ondansetron Hcl) 8 Mg Tablet 1 Tab PO Q8HRS Reglan (Metoclopramide Hcl) 10 Mg Tablet 1 Tab PO TID Albuterol Sulfate Conc Neb Soln (Albuterol Sulfate) 2.5 Mg/0.5 Ml Vial.neb 2.5 Mg NEB Flovent 100MCG Diskus (Fluticasone Propionate) 100 Mcg Disk.w.dev 100 Mcg IH Ventolin Hfa Inhaler (Albuterol Sulfate) 18 Gm Hfa.aer.ad 2 Puff INH QID Allergies Allergies: Coded Allergies: No Known Drug Allergies (Unverified , 12/02/15) ROS General: YES: Fatigue; No: Chills, Night Sweats, Malaise, Appetite, Other PSYCHOLOGICAL ROS: YES: Hostility, Irritablity, Sleep disturbances Eyes: No Blurry vision, No Decreased vision, No Double vision, No Dry eyes, No Excessive tearing, No Eye Pain, No Itchy Eyes, No Loss of vision, No Photophobia, No Scotomata, No Uses contacts, No Uses glasses, No Other HEENT: No: Heacaches, Visual Changes, Hearing change, Nasal congestion, Nasal discharge, Oral lesions, Sinus pain, Sore Throat, Epistaxis, Sneezing, Snoring, Tinnitus, Vertigo, Vocal changes, Other Respiratory: No: Cough, Hemoptysis, Orthopnea, Pleuritic Pain, Shortness of breath, SOB with excertion, Sputum Changes, Stridor, Tachypnea, Wheezing, Other Cardiovascular: No Chest Pain, No Palpitations, No Orthopnea, No Paroxysmal Noc. Dyspnea, No Edema, No Lt Headedness, No Other Gastrointestinal: Yes Nausea, Yes Abdominal Pain Genitourinary: No Dysuria, No Frequency, No Incontinence, No Hematuria, No Retention, No Discharge, No Urgency, No Pain, No Flank Pain, No Other, No , No , No , No , No , No , No Musculoskeletal: Yes Joint Pain Neurological: No Behavorial Changes, No Bowel/Bladder ControlChng, No Confusion, No Dizziness, No Gait Disturbance, No Headaches, No Impaired Coord/balance, No Memory Loss, No Numbness/Tingling, No Seizures, No Speech Problems, No Tremors, No Visual Changes, No Weakness, No Other Skin: No Dry Skin, No Eczema, No Hair Changes, No Lumps, No Mole Changes, No Mottling, No Nail Changes, No Pruritus, No Rash, No Skin Lesion Changes, No Other, No Acne Physical Exam General: Alert, Oriented X3, Cooperative, No acute distress HEENT: PERRLA, Mucous membr. moist/pink Lungs: Clear to auscultation Heart: S1S2, RRR, no gallops, no murmurs Abdomen: Normal bowel sounds, Soft Extremities: No cyanosis, No edema, Normal pulses Skin: No significant lesion Neuro: Normal speech, Sensation intact Psych/Mental Status: Mental status NL, Mood NL Vitals Vitals Vital Signs Date Time Temp Pulse Resp B/P (MAP) Pulse Ox O2 Delivery O2 Flow Rate FiO2 07/06/19 11:00 98.9 92 14 100/64 (76) 98 Room Air 98.9 Labs Labs Laboratory Tests Test 07/05/19 15:00 07/05/19 18:45 07/06/19 05:00 White Blood Count 6.9 x10^3/uL (4.0-11.0) 3.9 x10^3/uL (4.0-11.0) Red Blood Count 4.66 x10^6/uL (3.50-5.40) 3.77 x10^6/uL (3.50-5.40) Hemoglobin 14.3 g/dL (12.0-15.5) 11.8 g/dL (12.0-15.5) Hematocrit 42.9 % (36.0-47.0) 34.9 % (36.0-47.0) Mean Corpuscular Volume 92 fL (79-100) 93 fL (79-100) Mean Corpuscular Hemoglobin 31 pg (25-35) 31 pg (25-35) Mean Corpuscular Hemoglobin Concent 33 g/dL (31-37) 34 g/dL (31-37) Red Cell Distribution Width 13.7 % (11.5-14.5) 13.6 % (11.5-14.5) Platelet Count 164 x10^3/uL (140-400) 107 x10^3/uL (140-400) Neutrophils (%) (Auto) 64 % (31-73) 51 % (31-73) Lymphocytes (%) (Auto) 30 % (24-48) 40 % (24-48) Monocytes (%) (Auto) 3 % (0-9) 5 % (0-9) Eosinophils (%) (Auto) 2 % (0-3) 4 % (0-3) Basophils (%) (Auto) 1 % (0-3) 0 % (0-3) Neutrophils # (Auto) 4.4 x10^3/uL (1.8-7.7) 2.0 x10^3/uL (1.8-7.7) Lymphocytes # (Auto) 2.1 x10^3/uL (1.0-4.8) 1.6 x10^3/uL (1.0-4.8) Monocytes # (Auto) 0.2 x10^3/uL (0.0-1.1) 0.2 x10^3/uL (0.0-1.1) Eosinophils # (Auto) 0.1 x10^3/uL (0.0-0.7) 0.2 x10^3/uL (0.0-0.7) Basophils # (Auto) 0.1 x10^3/uL (0.0-0.2) 0.0 x10^3/uL (0.0-0.2) Sodium Level 141 mmol/L (136-145) 138 mmol/L (136-145) Potassium Level 4.1 mmol/L (3.5-5.1) 4.1 mmol/L (3.5-5.1) Chloride Level 97 mmol/L (98-107) 100 mmol/L (98-107) Carbon Dioxide Level 21 mmol/L (21-32) 24 mmol/L (21-32) Anion Gap 23 (6-14) 14 (6-14) Blood Urea Nitrogen 11 mg/dL (7-20) 10 mg/dL (7-20) Creatinine 0.9 mg/dL (0.6-1.0) 1.2 mg/dL (0.6-1.0) Estimated GFR (Cockcroft-Gault) 85.2 61.2 BUN/Creatinine Ratio 12 (6-20) 8 (6-20) Glucose Level 58 mg/dL (70-99) 125 mg/dL (70-99) Calcium Level 9.3 mg/dL (8.5-10.1) 8.4 mg/dL (8.5-10.1) Magnesium Level 1.6 mg/dL (1.8-2.4) Total Bilirubin 1.4 mg/dL (0.2-1.0) 1.6 mg/dL (0.2-1.0) Aspartate Amino Transf (AST/SGOT) 59 U/L (15-37) 72 U/L (15-37) Alanine Aminotransferase (ALT/SGPT) 44 U/L (14-59) 43 U/L (14-59) Alkaline Phosphatase 126 U/L (46-116) 101 U/L (46-116) Total Protein 8.3 g/dL (6.4-8.2) 6.8 g/dL (6.4-8.2) Albumin 4.3 g/dL (3.4-5.0) 3.4 g/dL (3.4-5.0) Albumin/Globulin Ratio 1.1 (1.0-1.7) 1.0 (1.0-1.7) Lipase 20 U/L (73-393) Salicylates Level < 2.8 mg/dL (2.8-20.0) Salicylate Last Dose Date Unk Salicylate Last Dose Time Unk Acetaminophen Level < 2 mcg/ml (10-30) Acetaminophen Last Dose Date Unk Acetaminophen Last Dose Time Unk Ethyl Alcohol Level 77 mg/dL (0-10) Urine Collection Type Unknown Urine Color Yellow Urine Clarity Hazy Urine pH 6.0 Urine Specific [place] 1.020 Urine Protein 100 mg/dL (NEG-TRACE) Urine Glucose (UA) Negative mg/dL (NEG) Urine Ketones (Stick) >=80 mg/dL (NEG) Urine Blood Small (NEG) Urine Nitrite Negative (NEG) Urine Bilirubin Negative (NEG) Urine Urobilinogen Dipstick 0.2 mg/dL (0.2 mg/dL) Urine Leukocyte Esterase Trace (NEG) Urine RBC 0 /HPF (0-2) Urine WBC 1-4 /HPF (0-4) Urine Squamous Epithelial Cells Few /LPF Urine Bacteria Many /HPF (0-FEW) Urine Mucus Mod /LPF Urine Opiates Screen Neg (NEG) Urine Methadone Screen Neg (NEG) Urine Barbiturates Neg (NEG) Urine Phencyclidine Screen Neg (NEG) Urine Amphetamine/Methamphetamine Neg (NEG) Urine Benzodiazepines Screen Neg (NEG) Urine Cocaine Screen Neg (NEG) Urine Cannabinoids Screen Neg (NEG) Urine Ethyl Alcohol Pos (NEG) Laboratory Tests Test 07/05/19 15:00 07/05/19 18:45 07/06/19 05:00 White Blood Count 6.9 x10^3/uL (4.0-11.0) 3.9 x10^3/uL (4.0-11.0) Red Blood Count 4.66 x10^6/uL (3.50-5.40) 3.77 x10^6/uL (3.50-5.40) Hemoglobin 14.3 g/dL (12.0-15.5) 11.8 g/dL (12.0-15.5) Hematocrit 42.9 % (36.0-47.0) 34.9 % (36.0-47.0) Mean Corpuscular Volume 92 fL (79-100) 93 fL (79-100) Mean Corpuscular Hemoglobin 31 pg (25-35) 31 pg (25-35) Mean Corpuscular Hemoglobin Concent 33 g/dL (31-37) 34 g/dL (31-37) Red Cell Distribution Width 13.7 % (11.5-14.5) 13.6 % (11.5-14.5) Platelet Count 164 x10^3/uL (140-400) 107 x10^3/uL (140-400) Neutrophils (%) (Auto) 64 % (31-73) 51 % (31-73) Lymphocytes (%) (Auto) 30 % (24-48) 40 % (24-48) Monocytes (%) (Auto) 3 % (0-9) 5 % (0-9) Eosinophils (%) (Auto) 2 % (0-3) 4 % (0-3) Basophils (%) (Auto) 1 % (0-3) 0 % (0-3) Neutrophils # (Auto) 4.4 x10^3/uL (1.8-7.7) 2.0 x10^3/uL (1.8-7.7) Lymphocytes # (Auto) 2.1 x10^3/uL (1.0-4.8) 1.6 x10^3/uL (1.0-4.8) Monocytes # (Auto) 0.2 x10^3/uL (0.0-1.1) 0.2 x10^3/uL (0.0-1.1) Eosinophils # (Auto) 0.1 x10^3/uL (0.0-0.7) 0.2 x10^3/uL (0.0-0.7) Basophils # (Auto) 0.1 x10^3/uL (0.0-0.2) 0.0 x10^3/uL (0.0-0.2) Sodium Level 141 mmol/L (136-145) 138 mmol/L (136-145) Potassium Level 4.1 mmol/L (3.5-5.1) 4.1 mmol/L (3.5-5.1) Chloride Level 97 mmol/L (98-107) 100 mmol/L (98-107) Carbon Dioxide Level 21 mmol/L (21-32) 24 mmol/L (21-32) Anion Gap 23 (6-14) 14 (6-14) Blood Urea Nitrogen 11 mg/dL (7-20) 10 mg/dL (7-20) Creatinine 0.9 mg/dL (0.6-1.0) 1.2 mg/dL (0.6-1.0) Estimated GFR (Cockcroft-Gault) 85.2 61.2 BUN/Creatinine Ratio 12 (6-20) 8 (6-20) Glucose Level 58 mg/dL (70-99) 125 mg/dL (70-99) Calcium Level 9.3 mg/dL (8.5-10.1) 8.4 mg/dL (8.5-10.1) Magnesium Level 1.6 mg/dL (1.8-2.4) Total Bilirubin 1.4 mg/dL (0.2-1.0) 1.6 mg/dL (0.2-1.0) Aspartate Amino Transf (AST/SGOT) 59 U/L (15-37) 72 U/L (15-37) Alanine Aminotransferase (ALT/SGPT) 44 U/L (14-59) 43 U/L (14-59) Alkaline Phosphatase 126 U/L (46-116) 101 U/L (46-116) Total Protein 8.3 g/dL (6.4-8.2) 6.8 g/dL (6.4-8.2) Albumin 4.3 g/dL (3.4-5.0) 3.4 g/dL (3.4-5.0) Albumin/Globulin Ratio 1.1 (1.0-1.7) 1.0 (1.0-1.7) Lipase 20 U/L (73-393) Salicylates Level < 2.8 mg/dL (2.8-20.0) Salicylate Last Dose Date Unk Salicylate Last Dose Time Unk Acetaminophen Level < 2 mcg/ml (10-30) Acetaminophen Last Dose Date Unk Acetaminophen Last Dose Time Unk Ethyl Alcohol Level 77 mg/dL (0-10) Urine Collection Type Unknown Urine Color Yellow Urine Clarity Hazy Urine pH 6.0 Urine Specific [place] 1.020 Urine Protein 100 mg/dL (NEG-TRACE) Urine Glucose (UA) Negative mg/dL (NEG) Urine Ketones (Stick) >=80 mg/dL (NEG) Urine Blood Small (NEG) Urine Nitrite Negative (NEG) Urine Bilirubin Negative (NEG) Urine Urobilinogen Dipstick 0.2 mg/dL (0.2 mg/dL) Urine Leukocyte Esterase Trace (NEG) Urine RBC 0 /HPF (0-2) Urine WBC 1-4 /HPF (0-4) Urine Squamous Epithelial Cells Few /LPF Urine Bacteria Many /HPF (0-FEW) Urine Mucus Mod /LPF Urine Opiates Screen Neg (NEG) Urine Methadone Screen Neg (NEG) Urine Barbiturates Neg (NEG) Urine Phencyclidine Screen Neg (NEG) Urine Amphetamine/Methamphetamine Neg (NEG) Urine Benzodiazepines Screen Neg (NEG) Urine Cocaine Screen Neg (NEG) Urine Cannabinoids Screen Neg (NEG) Urine Ethyl Alcohol Pos (NEG) VTE Prophylaxis Ordered VTE Prophylaxis Devices: No VTE Pharmacological Prophylaxi: Yes Assessment/Plan Assessment/Plan acute etoh intoxication and encephalopathy EtOH withdrawl delirium alcohol abuse disorder anxiety plan detox, needs psych follow up, discussed with PAT team HR about 100, + asterixis, extra dose of ativan ordered 11am TRENT CANCHOLA MD Jul 06, 2019 12:21
--- NOTE | 2019-07-06 12:59 | NUR ---
SW received a phone call from PAT team regarding pt to see if pt needs to evaluated again. Pt was seen by PAT team in the ER but was admitted. Pt has no significant PMHx and presented to ER wanting to detox. Pt drinks a fifth of a pint of hard liquor every day and stopped 2 days ago in preparation to go to [facility]. Tahira from [facility] team to see pt today. Pt was seen last year and was connected to [facility] for IOP services. HETAL will continue to follow.
[2019-07-06 15:00] VITALS: BP 92/55
[2019-07-06 19:00] VITALS: BP 107/68
[2019-07-06 23:05] VITALS: BP 111/67
[2019-07-07 03:52] VITALS: BP 106/65
[2019-07-07 07:00] VITALS: BP 101/65
[2019-07-07] MEDS ORDERED: IBUPROFEN 400 MG TABLET. PO PRN (09:00)
[2019-07-07] MEDS ORDERED: ONDANSETRON PF 4 MG/2 ML VIAL. IVP PRN (09:00)
[2019-07-07] MEDS: MULTIVIT INFUSN,ADULT 4,VIT K 10 ML, THIAMINE INJ 100 MG, FOLIC ACID INJ 1 MG in IV NOR... IV SCH (10:40)
--- NOTE | 2019-07-07 10:44 | PDOC ---
PROGRESS NOTES Chief Complaint Chief Complaint Alcohol intox Transaminitis FAtty liver Elev TB - recent EGD etc s.p biopsies ALcoholic liver dse History of Present Illness History of Present Illness CIWA score still high 25 GOt 4 mgs ativan last night and is feeling the effects Ate ok Claims no one home to taker her home today - CIWA still high though [facility] needs some med voucher, cant afford librax ($80? the last time) PLAN: NEed to keep, high CIWA CPM, banan bag etc dw RN Madhu Vitals Vitals Vital Signs Date Time Temp Pulse Resp B/P (MAP) Pulse Ox O2 Delivery O2 Flow Rate FiO2 07/07/19 07:00 99.0 86 20 101/65 (77) 97 Room Air 99.0 Physical Exam General: Alert, Oriented X3, Cooperative, No acute distress Lungs: Clear, Other Abdomen: Normal bowel sounds, Soft Extremities: No cyanosis, No edema, Normal pulses Skin: No significant lesion Review of Systems Review of Systems shaky, gait iffy, all else neg Assessment and Plan Assessmemt and Plan Problems Medical Problems: (1) Alcohol withdrawal Status: Acute Comment Review of Relevant I have reviewed the following items jacque (where applicable) has been applied. Labs Laboratory Tests Test 07/05/19 15:00 07/05/19 18:45 07/06/19 05:00 White Blood Count 6.9 x10^3/uL (4.0-11.0) 3.9 x10^3/uL (4.0-11.0) Red Blood Count 4.66 x10^6/uL (3.50-5.40) 3.77 x10^6/uL (3.50-5.40) Hemoglobin 14.3 g/dL (12.0-15.5) 11.8 g/dL (12.0-15.5) Hematocrit 42.9 % (36.0-47.0) 34.9 % (36.0-47.0) Mean Corpuscular Volume 92 fL (79-100) 93 fL (79-100) Mean Corpuscular Hemoglobin 31 pg (25-35) 31 pg (25-35) Mean Corpuscular Hemoglobin Concent 33 g/dL (31-37) 34 g/dL (31-37) Red Cell Distribution Width 13.7 % (11.5-14.5) 13.6 % (11.5-14.5) Platelet Count 164 x10^3/uL (140-400) 107 x10^3/uL (140-400) Neutrophils (%) (Auto) 64 % (31-73) 51 % (31-73) Lymphocytes (%) (Auto) 30 % (24-48) 40 % (24-48) Monocytes (%) (Auto) 3 % (0-9) 5 % (0-9) Eosinophils (%) (Auto) 2 % (0-3) 4 % (0-3) Basophils (%) (Auto) 1 % (0-3) 0 % (0-3) Neutrophils # (Auto) 4.4 x10^3/uL (1.8-7.7) 2.0 x10^3/uL (1.8-7.7) Lymphocytes # (Auto) 2.1 x10^3/uL (1.0-4.8) 1.6 x10^3/uL (1.0-4.8) Monocytes # (Auto) 0.2 x10^3/uL (0.0-1.1) 0.2 x10^3/uL (0.0-1.1) Eosinophils # (Auto) 0.1 x10^3/uL (0.0-0.7) 0.2 x10^3/uL (0.0-0.7) Basophils # (Auto) 0.1 x10^3/uL (0.0-0.2) 0.0 x10^3/uL (0.0-0.2) Sodium Level 141 mmol/L (136-145) 138 mmol/L (136-145) Potassium Level 4.1 mmol/L (3.5-5.1) 4.1 mmol/L (3.5-5.1) Chloride Level 97 mmol/L (98-107) 100 mmol/L (98-107) Carbon Dioxide Level 21 mmol/L (21-32) 24 mmol/L (21-32) Anion Gap 23 (6-14) 14 (6-14) Blood Urea Nitrogen 11 mg/dL (7-20) 10 mg/dL (7-20) Creatinine 0.9 mg/dL (0.6-1.0) 1.2 mg/dL (0.6-1.0) Estimated GFR (Cockcroft-Gault) 85.2 61.2 BUN/Creatinine Ratio 12 (6-20) 8 (6-20) Glucose Level 58 mg/dL (70-99) 125 mg/dL (70-99) Calcium Level 9.3 mg/dL (8.5-10.1) 8.4 mg/dL (8.5-10.1) Magnesium Level 1.6 mg/dL (1.8-2.4) Total Bilirubin 1.4 mg/dL (0.2-1.0) 1.6 mg/dL (0.2-1.0) Aspartate Amino Transf (AST/SGOT) 59 U/L (15-37) 72 U/L (15-37) Alanine Aminotransferase (ALT/SGPT) 44 U/L (14-59) 43 U/L (14-59) Alkaline Phosphatase 126 U/L (46-116) 101 U/L (46-116) Total Protein 8.3 g/dL (6.4-8.2) 6.8 g/dL (6.4-8.2) Albumin 4.3 g/dL (3.4-5.0) 3.4 g/dL (3.4-5.0) Albumin/Globulin Ratio 1.1 (1.0-1.7) 1.0 (1.0-1.7) Lipase 20 U/L (73-393) Salicylates Level < 2.8 mg/dL (2.8-20.0) Salicylate Last Dose Date Unk Salicylate Last Dose Time Unk Acetaminophen Level < 2 mcg/ml (10-30) Acetaminophen Last Dose Date Unk Acetaminophen Last Dose Time Unk Ethyl Alcohol Level 77 mg/dL (0-10) Urine Collection Type Unknown Urine Color Yellow Urine Clarity Hazy Urine pH 6.0 Urine Specific [place] 1.020 Urine Protein 100 mg/dL (NEG-TRACE) Urine Glucose (UA) Negative mg/dL (NEG) Urine Ketones (Stick) >=80 mg/dL (NEG) Urine Blood Small (NEG) Urine Nitrite Negative (NEG) Urine Bilirubin Negative (NEG) Urine Urobilinogen Dipstick 0.2 mg/dL (0.2 mg/dL) Urine Leukocyte Esterase Trace (NEG) Urine RBC 0 /HPF (0-2) Urine WBC 1-4 /HPF (0-4) Urine Squamous Epithelial Cells Few /LPF Urine Bacteria Many /HPF (0-FEW) Urine Mucus Mod /LPF Urine Opiates Screen Neg (NEG) Urine Methadone Screen Neg (NEG) Urine Barbiturates Neg (NEG) Urine Phencyclidine Screen Neg (NEG) Urine Amphetamine/Methamphetamine Neg (NEG) Urine Benzodiazepines Screen Neg (NEG) Urine Cocaine Screen Neg (NEG) Urine Cannabinoids Screen Neg (NEG) Urine Ethyl Alcohol Pos (NEG) Medications Current Medications Ondansetron HCl (Zofran) 4 mg 1X ONCE IV Last administered on 07/05/19at 15:12; Start 07/05/19 at 15:00; Stop 07/05/19 at 15:01; Status DC Lorazepam (Ativan Inj) 1 mg 1X ONCE IV Last administered on 07/05/19at 15:12; Start 07/05/19 at 15:00; Stop 07/05/19 at 15:01; Status DC Multivitamins 10 ml/Thiamine HCl 100 mg/Folic Acid 1 mg/Sodium Chloride 1,011.2 ml @ 1,000 mls/ hr 1X ONCE IV Last administered on 07/05/19at 15:12; Start 07/05/19 at 15:00; Stop 07/05/19 at 16:00; Status DC Ondansetron HCl (Zofran) 4 mg PRN Q8HRS PRN IV NAUSEA/VOMITING Last administered on 07/06/19at 08:05; Start 07/05/19 at 19:00; Stop 07/06/19 at 18:59; Status DC Lorazepam (Ativan Inj) 2 mg PRN Q15MIN PRN IV SEE COMMENTS Last administered on 07/05/19at 19:37; Start 07/05/19 at 19:00; Stop 07/06/19 at 08:00; Status DC Multivitamins 10 ml/Thiamine HCl 100 mg/Folic Acid 1 mg/Sodium Chloride 1,011.2 ml @ 100 mls/ hr DAILY IV Last administered on 07/06/19at 07:58; Start 07/06/19 at 09:00; Stop 07/10/19 at 19:07 Multivitamins (Thera M Plus) 1 tab DAILY PO ; Start 07/10/19 at 09:00 Folic Acid (Folic Acid) 1 mg DAILY PO ; Start 07/10/19 at 09:00 Thiamine Mononitrate (Vitamin B-1) 100 mg DAILY PO ; Start 07/10/19 at 09:00 Chlordiazepoxide (Librium) 50 mg PRN Q1HR PRN PO For CIWA 8-14; Start 07/05/19 at 21:30 Chlordiazepoxide (Librium) 100 mg PRN Q1HR PRN PO For CIWA 15 or greater Last administered on 07/06/19at 22:09; Start 07/05/19 at 21:30 Lorazepam (Ativan) 4 mg PRN Q1HR PRN PO For CIWA 8-14; Start 07/05/19 at 21:30 Lorazepam (Ativan) 8 mg PRN Q1HR PRN PO For CIWA 15 or greater; Start 07/05/19 at 21:30 Lorazepam (Ativan Inj) 2 mg PRN Q1HR PRN IV For CIWA 8-14 Last administered on 07/06/19at 22:01; Start 07/05/19 at 21:30 Lorazepam (Ativan Inj) 4 mg PRN Q1HR PRN IV For CIWA 15 or greater Last administered on 07/07/19at 02:45; Start 07/05/19 at 21:30 Haloperidol Lactate (Haldol Inj) 5 mg PRN Q4HRS PRN IVP Hallucinatns,Confusn,Delirium; Start 07/05/19 at 21:30 Diphenhydramine HCl (Benadryl) 25 mg PRN Q15MIN PRN IVP EPS symptoms 2'Haldol admin; Start 07/05/19 at 21:30 Clonidine HCl (Catapres) 0.1 mg PRN Q1HR PRN PO SBP > 180 or DBP > 100, MRX3; Start 07/05/19 at 21:30 Ondansetron HCl (Zofran) 4 mg PRN Q6HRS PRN IVP NAUSEA/VOMITING; Start 07/07/19 at 09:00 Ibuprofen (Motrin) 400 mg PRN Q6HRS PRN PO INFLAMMATION; Start 07/07/19 at 09:00 Active Scripts Active Cipro (Ciprofloxacin Hcl) 250 Mg Tablet 500 Mg PO BID 7 Days Pantoprazole Sodium 40 Mg Tablet.dr 40 Mg PO DAILYAC Mag-Oxide (Magnesium Oxide) 400 Mg Tablet 400 Mg PO DAILY Chlordiazepoxide Hcl 25 Mg Capsule 25 Mg PO TID 1 pill tid for 2 days, then 1 pill bid for 2 days Zofran Odt (Ondansetron) 4 Mg Tab.rapdis 1 Tab SL PRN Q8HRS PRN Reported Trazodone Hcl 100 Mg Tablet 100 Mg PO DAILY Zofran (Ondansetron Hcl) 8 Mg Tablet 1 Tab PO Q8HRS Reglan (Metoclopramide Hcl) 10 Mg Tablet 1 Tab PO TID Albuterol Sulfate Conc Neb Soln (Albuterol Sulfate) 2.5 Mg/0.5 Ml Vial.neb 2.5 Mg NEB Flovent 100MCG Diskus (Fluticasone Propionate) 100 Mcg Disk.w.dev 100 Mcg IH Ventolin Hfa Inhaler (Albuterol Sulfate) 18 Gm Hfa.aer.ad 2 Puff INH QID Vitals/I & O Vital Sign - Last 24 Hours 07/06/19 07/06/19 07/06/19 07/06/19 11:00 15:00 19:00 20:15 Temp 98.9 98.5 98.5 98.9 98.5 98.5 Pulse 92 85 84 Resp 14 14 18 B/P (MAP) 100/64 (76) 92/55 (67) 107/68 (81) Pulse Ox 98 97 99 O2 Delivery Room Air Room Air Room Air Room Air 07/06/19 07/07/19 07/07/19 23:05 03:52 07:00 Temp 98.7 98.2 99.0 98.7 98.2 99.0 Pulse 68 74 86 Resp 18 20 20 B/P (MAP) 111/67 (82) 106/65 (79) 101/65 (77) Pulse Ox 98 99 97 O2 Delivery Room Air Room Air Room Air JENNIFER RITCHIE MD Jul 07, 2019 10:44
[2019-07-07 11:00] VITALS: BP 121/80
[2019-07-07 15:00] VITALS: BP 109/68
[2019-07-07 19:00] VITALS: BP 122/62
[2019-07-07 23:04] VITALS: BP 109/76
[2019-07-08 03:08] VITALS: BP 102/61
[2019-07-08 07:00] VITALS: BP 124/78
[2019-07-08] MEDS ORDERED: LORA-434 PO (08:03)
[2019-07-08] MEDS ORDERED: QUET200T4 PO (08:08)
[2019-07-08] MEDS ORDERED: GABA300C18 PO (08:08)
--- NOTE | 2019-07-08 08:24 | PDOC3 ---
Discharge Summary Visit Information Date of Admission: Jul 05, 2019 Date of Discharge: Jul 08, 2019 Final Diagnosis Alcohol intox Transaminitis FAtty liver Elev TB - recent EGD etc s.p biopsies ALcoholic liver acute toxic encepalopathy Problems Medical Problems: (1) Alcohol withdrawal Status: Acute Brief Hospital Course Allergies Allergies Coded Allergies Type Severity Reaction Last Updated Verified No Known Drug Allergies 12/02/15 No Vital Signs Vital Signs Date Time Temp Pulse Resp B/P (MAP) Pulse Ox O2 Delivery O2 Flow Rate FiO2 07/08/19 07:00 98.2 65 16 124/78 (93) 97 Room Air 98.2 Lab Results Laboratory Tests Test 07/07/19 10:15 Ethyl Alcohol Level < 10 mg/dL (0-10) Laboratory Tests Test 07/07/19 10:15 Ethyl Alcohol Level < 10 mg/dL (0-10) Brief Hospital Course Ms. Briggs is a 38 old female, admit with acute EtOH intox and withdrawl. delirium withdrawl and marked encephalopathy, I saw her on 07/06 and 07/08, and she did not remember our first encounter transaminitis, small elevation in bili, her meds had been changed by psych, has had insomnia, Discharge Information Condition at Discharge: Improved Follow Up: Weeks Disposition/Orders: D/C to Home Scheduled Albuterol Sulfate (Ventolin Hfa Inhaler) 18 Gm Hfa.aer.ad, 2 PUFF INH QID for FOR ASTHMA, Ref 0 (Reported) Entered as Reported by: MARCY KIMBROUGH on 12/02/15 1604 Gabapentin (Gabapentin ) 300 Mg Capsule, 300 MG PO DAILY16 for NEUROGENIC PAIN, #30 Prescribed by: TRENT CANCHOLA on 07/08/19 0808 Magnesium Oxide (Mag-Oxide) 400 Mg Tablet, 400 MG PO DAILY, #3 Prescribed by: RUBY MILES MD on 08/12/16 1129 Pantoprazole Sodium (Pantoprazole Sodium ) 40 Mg Tablet.dr, 40 MG PO DAILYAC, #30 Prescribed by: RUBY MILES MD on 08/12/16 1129 Quetiapine Fumarate (Seroquel) 200 Mg Tablet, 1 TAB PO QHS for sleep, #30 Ref 1 Prescribed by: TRENT CANCHOLA on 07/08/19 0808 Scheduled PRN Lorazepam (Ativan) 1 Mg Tablet, 1 MG PO QID PRN for TREMORS, #25 Prescribed by: TRENT CANCHOLA on 07/08/19 0803 Miscellaneous Medications Albuterol Sulfate (Albuterol Sulfate Conc Neb Soln) 2.5 Mg/0.5 Ml Vial.neb, 2.5 MG NEB for FOR ASTHMA, Ref 0 (Reported) Entered as Reported by: MARCY KIMBROUGH on 12/02/15 1604 Fluticasone Propionate (Flovent 100MCG Diskus) 100 Mcg Disk.w.dev, 100 MCG IH, (Reported) Entered as Reported by: MARCY KIMBROUGH on 12/02/15 1604 Discontinued Medications Chlordiazepoxide Hcl (Chlordiazepoxide Hcl) 25 Mg Capsule, 25 MG PO TID, #10 1 pill tid for 2 days, then 1 pill bid for 2 days Prescribed by: RUBY MILES MD on 08/12/16 1129 Ciprofloxacin Hcl (Cipro) 250 Mg Tablet, 500 MG PO BID for 7 Days, #28 Prescribed by: JENNIFER RITCHIE on 03/15/18 1058 Metoclopramide Hcl (Reglan) 10 Mg Tablet, 1 TAB PO TID, #90 (Reported) Entered as Reported by: RUBA TORRES on 05/30/17 203 Ondansetron (Zofran Odt) 4 Mg Tab.rapdis, 1 TAB SL PRN Q8HRS PRN for NAUSEA, #15 Prescribed by: KINJAL GUIDO on 05/12/16 1810 Ondansetron Hcl (Zofran) 8 Mg Tablet, 1 TAB PO Q8HRS, #90 Ref 2 (Reported) Entered as Reported by: RUBA TORRES on 05/30/172037 Trazodone Hcl (Trazodone Hcl) 100 Mg Tablet, 100 MG PO DAILY, (Reported) Entered as Reported by: BUTCH RUIZ on 03/15/18 0712 Patient Instructions Patient Instructions > 30 min face to face x2 TRENT CANCHOLA MD Jul 08, 2019 08:24
[2019-07-08 11:19] VITALS: BP 115/78
--- NOTE | 2019-07-08 13:45 | NUR ---
Discharge Note: DESMOND NAIDU [facility] Discharge instructions and discharge home medications reviewed with Patient and a copy given. All questions have been answered and understanding verbalized. The following instructions and handouts were given: patient visit report, medication information, education. Discontinued lines and drains: peripheral IV, tip intact. Patient discharged to home with self care via cab pass. Patient left unit awake, in stable condition with all personal belongings.
[2019-07-10] MEDS ORDERED: FOLIC ACID 1 MG TABLET. PO SCH (09:00)
[2019-07-10] MEDS ORDERED: THIAMINE 100 MG TABLET. PO SCH (09:00)
[2019-07-10] MEDS ORDERED: MULTIVITAMIN with MINERAL TABLET. PO SCH (09:00)
== END 2019-07-08 13:30 | disposition home or self-care (01) | DRG 432 ==
LOC: ER 14:44 → 5 SOUTH 18:09
PROVIDERS: ADMIT Internal Medicine; ATTEND Internal Medicine
DX: K70.9 Alcoholic liver disease, unspecified (principal); G92 Toxic encephalopathy; F10.239 Alcohol dependence with withdrawal, unspecified; F10.229 Alcohol dependence with intoxication, unspecified; R74.0 Nonspecific elevation of levels of transaminase and lactic acid dehydrogenase [LDH]; F41.9 Anxiety disorder, unspecified; J45.909 Unspecified asthma, uncomplicated; K76.0 Fatty (change of) liver, not elsewhere classified; Z87.440 Personal history of urinary (tract) infections
CPT/HCPCS: 36415; 80053; 80307; 80329; 81001; 83690; 83735; 85025; 96365; 96366; 96375; 96376; G0480; J2060; J2405; J7030; 99285-25; G0378

== ENCOUNTER 2020-09-18 05:29 | Inpatient (IN) | payer MEDICAID ==
[~2020-09-18] VITALS: Ht 160 cm; Wt 68.2 kg
[~2020-09-18 05:29] MED LIST changes: -FLUT100D IH; +FLUT100D2 IH; +GABA300C18 PO; +LORA-434 PO; +QUET200T4 PO; +TRAZ-123 PO; -TRAZ-86 PO
[2020-09-18] MEDS ORDERED: IV NORMAL SALINE 1000ML BAG 1,000 ML IV SCH (06:00)
[2020-09-18 06:11] LABS: BILIRUBIN,URINE NEGATIVE (NEG); CLARITY,URINE CLEAR; COLOR,URINE YELLOW; NITRITE,URINE NEGATIVE (NEG); PH,URINE 6.5 (<5.0-8.0); PROTEIN,URINE >=300 mg/dL (NEG-TRACE)
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
[2020-09-18 06:29] LABS: BACTERIA,URINE FEW /HPF (0-FEW)
--- NOTE | 2020-09-18 06:44 | RAD ---
EXAM: AP View of the chest DATE: 09/18/2020 5:54 AM INDICATION: Reason: seizure / Spl. Instructions: / History: COMPARISON: 12/15/2017 FINDINGS: The heart is not enlarged. Mediastinal and hilar contours are normal. No focal parenchymal airspace opacity. No pleural effusion or pneumothorax. IMPRESSION: 1. No radiographic evidence for acute cardiopulmonary process. Electronically signed by: Matthias Oliveira MD (09/18/2020 6:41 AM) CHELLY
[2020-09-18] MEDS ORDERED: ONDANSETRON PF 4 MG/2 ML VIAL. IVP ONE (06:45)
[2020-09-18 07:43] LABS: BASO % 0 % (0-3); EOS % 0 % (0-3); HEMATOCRIT 39.1 % (36.0-47.0); HEMOGLOBIN 13.1 g/dL (12.0-15.5); LYMPH # 1.1 x10^3/uL (1.0-4.8); LYMPH % 18 % (24-48); MEAN CORPUSCULAR HEMOGLOBIN 30 pg (25-35); MEAN CORPUSCULAR HGB CONC 34 g/dL (31-37); MEAN CORPUSCULAR VOLUME 89 fL (79-100); MONO # 0.2 x10^3/uL (0.0-1.1); MONO % 3 % (0-9); NEUT # 4.8 x10^3/uL (1.8-7.7); NEUT % 78 % (31-73); PLATELET COUNT 80 x10^3/uL (140-400); RED BLOOD COUNT 4.41 x10^6/uL (3.50-5.40); RED CELL DISTRIBUTION WIDTH 13.7 % (11.5-14.5); WHITE BLOOD COUNT 6.1 x10^3/uL (4.0-11.0)
[2020-09-18 07:51] LABS: CALCIUM 8.2 mg/dL (8.5-10.1); GFR 75.1; POTASSIUM 4.6 mmol/L (3.5-5.1)
[2020-09-18 07:57] LABS: ALBUMIN 3.5 g/dL (3.4-5.0); TOTAL BILIRUBIN 1.4 mg/dL (0.2-1.0); TOTAL PROTEIN 7.1 g/dL (6.4-8.2)
[2020-09-18] MEDS ORDERED: KETOROLAC 30 MG/ML VIAL. IVP ONE (08:15)
[2020-09-18 08:22] LABS: AMPHETAMINE/METHAMPHETAMINE NEG (NEG); BARBITURATES NEG (NEG); BENZODIAZEPINES NEG (NEG); CANNABINOIDS NEG (NEG); COCAINE NEG (NEG); METHADONE NEG (NEG); OPIATES NEG (NEG); PHENCYCLIDINE NEG (NEG)
[2020-09-18] MEDS ORDERED: IV NORMAL SALINE 1000ML BAG 1,000 ML IV ONE (10:00)
[2020-09-18] MEDS ORDERED: MORPHINE SULFATE 4 MG/ML VIAL. IV ONE (10:30)
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
--- NOTE | 2020-09-18 11:46 | RAD ---
PROCEDURE: XR KNEE 3 VIEWS STUDY DATE: 09/18/2020 CLINICAL INDICATION / HISTORY: Reason: bilateral knee contusion post seizure, pt held for x-rays / Sp l. Instructions: / History: . TECHNIQUE: AP, lateral, and tunnel views of the right and left knees. COMPARISON: None FINDINGS: The osseous structures are intact. The articular surfaces are smooth. The joint space is maintained. No intra-articular loose bodies. The alignment is within normal limits. The soft tiss ues are unremarkable. No obvious joint effusion. No radio-opaque foreign bodies are identified. IMPRESSION: No fracture or dislocation is identified in either knee. Electronically signed by: Mendez Adler MD (09/18/2020 11:43 AM) [id number]
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
[2020-09-18] MEDS ORDERED: METOCLOPRAMIDE HCL 10 MG/2 ML VIAL. IVP ONE (12:45)
[2020-09-18 14:10] VITALS: BP 141/86
[2020-09-18 14:30] VITALS: BP 149/81
[2020-09-18] MEDS: THIAMINE 100 MG TABLET. PO SCH (17:03)
[2020-09-18] MEDS: FOLIC ACID 1 MG TABLET. PO SCH (17:04)
[2020-09-18] MEDS: IV NORMAL SALINE 1000ML BAG 1,000 ML IV SCH (17:04)
[2020-09-18] MEDS: HYDROcodone/APAP 5/325MG 1 TAB TABLET PO PRN (17:04)
[2020-09-18] MEDS: MULTIVITAMIN with MINERAL TABLET. PO SCH (17:04)
[2020-09-18 19:00] VITALS: BP 139/84
[2020-09-18] MEDS ORDERED: ONDANSETRON PF 4 MG/2 ML VIAL. IVP PRN (20:00)
[2020-09-18 23:00] VITALS: BP 165/90
[2020-09-19 03:55] VITALS: BP 149/88
[2020-09-19] MEDS: IV NORMAL SALINE 1000ML BAG 1,000 ML IV SCH ×2 (05:41→18:40)
[2020-09-19 07:00] VITALS: BP 161/86
[2020-09-19] MEDS: HYDROcodone/APAP 5/325MG 1 TAB TABLET PO PRN ×3 (08:43→20:56)
[2020-09-19] MEDS: FOLIC ACID 1 MG TABLET. PO SCH (08:43)
[2020-09-19] MEDS: THIAMINE 100 MG TABLET. PO SCH (08:43)
[2020-09-19] MEDS: MULTIVITAMIN with MINERAL TABLET. PO SCH (08:44)
[2020-09-19] MEDS ORDERED: INFLUENZA VAX SCREEN BY RX. MC ONE (09:00)
[2020-09-19] MEDS ORDERED: MULTIVIT INFUSN,ADULT 4,VIT K 10 ML, THIAMINE INJ 100 MG, FOLIC ACID INJ 1 MG in IV NOR... IV SCH (09:00)
[2020-09-19 09:41] LABS: CALCIUM 8.4 mg/dL (8.5-10.1); CREATININE 0.9 mg/dL (0.6-1.0); GFR 84.8; MAGNESIUM 1.9 mg/dL (1.8-2.4); POTASSIUM 4.1 mmol/L (3.5-5.1)
[2020-09-19 09:42] LABS: BASO % 0 % (0-3); EOS % 0 % (0-3); HEMATOCRIT 32.7 % (36.0-47.0); HEMOGLOBIN 10.9 g/dL (12.0-15.5); LYMPH # 1.9 x10^3/uL (1.0-4.8); LYMPH % 44 % (24-48); MEAN CORPUSCULAR HEMOGLOBIN 30 pg (25-35); MEAN CORPUSCULAR HGB CONC 34 g/dL (31-37); MEAN CORPUSCULAR VOLUME 89 fL (79-100); MONO # 0.1 x10^3/uL (0.0-1.1); MONO % 3 % (0-9); NEUT # 2.2 x10^3/uL (1.8-7.7); NEUT % 52 % (31-73); PLATELET COUNT 45 x10^3/uL (140-400); RED BLOOD COUNT 3.69 x10^6/uL (3.50-5.40); RED CELL DISTRIBUTION WIDTH 13.4 % (11.5-14.5); WHITE BLOOD COUNT 4.2 x10^3/uL (4.0-11.0)
--- NOTE | 2020-09-19 09:47 | NUR ---
SW following. Discussed with RN, pt from home, room air, regular diet. PAT consulted for ETOH use. RN advised no other SW needs at this time. SW will continue to follow. Addendum: 09/19/20 at 1310 by SMITH MACARIO SW Dunia (SHANON) met with pt, pt is open with [employer], upper caser is Molly. Duque and pt called Yamini - pt will have everything she needs to get back on track with the medicated assisted treatment when she discharges from [facility]. No further SW needs at this time. RN notified. SW will continue to follow.
[2020-09-19 11:00] VITALS: BP 142/78
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
[2020-09-19 15:00] VITALS: BP 140/89
[2020-09-19 19:00] VITALS: BP 139/90
[2020-09-19 23:00] VITALS: BP 121/78
[2020-09-20 03:00] VITALS: BP 137/86
[2020-09-20 07:00] VITALS: BP 123/66
[2020-09-20] MEDS: HYDROcodone/APAP 5/325MG 1 TAB TABLET PO PRN ×3 (07:44→21:56)
[2020-09-20] MEDS: IV NORMAL SALINE 1000ML BAG 1,000 ML IV SCH ×2 (08:00→21:20)
[2020-09-20] MEDS: MULTIVITAMIN with MINERAL TABLET. PO SCH (10:06)
[2020-09-20] MEDS: FOLIC ACID 1 MG TABLET. PO SCH (10:06)
[2020-09-20] MEDS: THIAMINE 100 MG TABLET. PO SCH (10:06)
[2020-09-20] MEDS ORDERED: SODIUM CHLORIDE 0.65% NASAL SPRAY 45ML BOTTLE. NS PRN (10:15)
--- NOTE | 2020-09-20 10:16 | PDOC ---
[employer] PROGRESS NOTE Date of Service DOS: DATE: 09/20/20 TIME: 10:16 Chief Complaint Chief Complaint Acute seizure episodes EtOH withdrawal EtOH abuse Normocytic anemia due to chronic disease Acute electrolyte derangementhyponatremia, hypochloremiaimproved Transaminitis with AST ALT ratio suggestive of alcohol abuse Continue observation CIWA protocol PAT consult IV electrolyte replacement as needed SCD and ambulation for DVT prophylaxis Protonix GI prophylaxis ADA diet Full code Discussed with RN and SW Disposition inpatient management as above, anticipate discharge in the next 24 to 48 hours Surrogate decision maker is undesignated History of Present Illness History of Present Illness 09/20/2020 No acute events overnight. No agitation or seizure episodes. Patient does complain of sinus pressure and headache. Will administer fluticasone and saline wash and Tylenol as needed. Patient's chart, labs, images were reviewed and discussed with RN 09/19/2020 No acute events overnight. No agitated or aggressive episodes. Patient seen and examined bedside and she was resting comfortably. Patient's chart, labs, images were reviewed and discussed with RN 39-year-old female who drinks a fifth of vodka a day. Basically, she was in the parking lot at a local grocery store. She had 2 witnessed seizures. She has now been brought in by ambulance. I discussed the case with the ER physician. We are going to admit the patient for alcohol withdrawal protocol. Vitals/I&O Vitals/I&O: Vital Signs Date Time Temp Pulse Resp B/P (MAP) Pulse Ox O2 Delivery O2 Flow Rate FiO2 09/20/20 08:44 Room Air 09/20/20 07:00 98.8 70 18 123/66 (85) 96 98.8 I & O 09/19/20 09/19/20 09/20/20 15:00 23:00 07:00 Intake Total 420 ml 480 ml 320 ml Balance 420 ml 480 ml 320 ml Physical Exam Lungs: Clear, Other Assessment and Plan Assessmemt and Plan Problems Medical Problems: (1) Alcohol withdrawal Status: Acute (2) Alcohol withdrawal seizure Status: Acute Comment Review of Relevant I have reviewed the following items jacque (where applicable) has been applied. Justifications for Admission Other Justification EDIE JORDAN MD Sep 20, 2020 10:16
[2020-09-20 10:38] VITALS: BP 124/61
[2020-09-20] MEDS ORDERED: FLU VACC QS 2020-21(6MOS+)/PF 0.5 ML SYRINGE. VAX IM ONE (11:00)
[2020-09-20 15:00] VITALS: BP 122/63
[2020-09-20] MEDS: FLUTICASONE 50MCG/NASAL SPRAY 16GM BOTTLE. NS SCH (15:33)
[2020-09-20 19:00] VITALS: BP 108/73
[2020-09-20 23:00] VITALS: BP 131/94
[2020-09-21] MEDS: HYDROcodone/APAP 5/325MG 1 TAB TABLET PO PRN ×4 (02:52→23:05)
[2020-09-21 03:00] VITALS: BP 125/84
[2020-09-21 07:00] VITALS: BP 135/73
[2020-09-21] MEDS: FLUTICASONE 50MCG/NASAL SPRAY 16GM BOTTLE. NS SCH (09:00)
[2020-09-21] MEDS: FOLIC ACID 1 MG TABLET. PO SCH (09:50)
[2020-09-21] MEDS: THIAMINE 100 MG TABLET. PO SCH (09:50)
[2020-09-21] MEDS: MULTIVITAMIN with MINERAL TABLET. PO SCH (09:50)
--- NOTE | 2020-09-21 09:57 | PDOC ---
[employer] PROGRESS NOTE Date of Service DOS: DATE: 09/21/20 TIME: 09:56 Chief Complaint Chief Complaint Acute seizure episodes EtOH withdrawal EtOH abuse Normocytic anemia due to chronic disease Acute electrolyte derangementhyponatremia, hypochloremiaimproved Transaminitis with AST ALT ratio suggestive of alcohol abuse Continue observation CIWA protocol PAT consult IV electrolyte replacement as needed SCD and ambulation for DVT prophylaxis Protonix GI prophylaxis ADA diet Full code Discussed with RN and SW Disposition inpatient management as above, anticipate discharge in the next 24 to 48 hours Surrogate decision maker is undesignated History of Present Illness History of Present Illness 09/21/2020 No acute events overnight. Patient symptoms have improved which includes her headache and nausea. Patient's chart, labs, images were reviewed and discussed with RN. Anticipate discharge within the next 24 hours either to [facility] or home with her father. 09/20/2020 No acute events overnight. No agitation or seizure episodes. Patient does complain of sinus pressure and headache. Will administer fluticasone and saline wash and Tylenol as needed. Patient's chart, labs, images were reviewed and discussed with RN 09/19/2020 No acute events overnight. No agitated or aggressive episodes. Patient seen and examined bedside and she was resting comfortably. Patient's chart, labs, images were reviewed and discussed with RN 39-year-old female who drinks a fifth of vodka a day. Basically, she was in the parking lot at a local grocery store. She had 2 witnessed seizures. She has now been brought in by ambulance. I discussed the case with the ER physician. We are going to admit the patient for alcohol withdrawal protocol. Vitals/I&O Vitals/I&O: Vital Signs Date Time Temp Pulse Resp B/P (MAP) Pulse Ox O2 Delivery O2 Flow Rate FiO2 09/21/20 07:00 98.7 75 20 135/73 (93) 96 Room Air 98.7 I & O 09/20/20 09/20/20 09/21/20 15:00 23:00 07:00 Intake Total 550 ml 600 ml 540 ml Balance 550 ml 600 ml 540 ml Physical Exam Lungs: Clear, Other Assessment and Plan Assessmemt and Plan Problems Medical Problems: (1) Alcohol withdrawal Status: Acute (2) Alcohol withdrawal seizure Status: Acute Comment Review of Relevant I have reviewed the following items jacque (where applicable) has been applied. Medications: Current Medications Medications (Trade) Dose Ordered Sig/Kaylin Route PRN Reason Start Time Stop Time Status Last Admin Dose Admin Influenza Virus Vaccine Quadrival (Fluzone Quad Syringe) 0.5 ml ONCE ONCE VAX IM 09/20/20 11:00 09/20/20 11:01 DC 09/20/20 11:47 Sodium Chloride (Saline Mist Nasal) 1 willem PRN Q1HR PRN NS NASAL CONGESTION 09/20/20 10:15 09/20/20 15:32 Fluticasone Propionate (Flonase) 2 spray DAILY NS 09/20/20 11:00 09/20/20 15:33 Justifications for Admission Other Justification EDIE JORDAN MD Sep 21, 2020 09:57
[2020-09-21] MEDS: IV NORMAL SALINE 1000ML BAG 1,000 ML IV SCH ×3 (10:08→23:06)
[2020-09-21 11:00] VITALS: BP 116/68
[2020-09-21 15:00] VITALS: BP 129/81
[2020-09-21 19:00] VITALS: BP 110/65
[2020-09-21 23:02] VITALS: BP 142/81
[2020-09-22 03:03] VITALS: BP 135/76
--- NOTE | 2020-09-22 05:48 | NUR ---
Around 0510 the aide came and told me that the pt. was seen leaving the unit. After checking [address] and [address] I called security because I was unable to locate her. Security located her outside smoking and brought her back to the unit. They explained to her that there was no smoking. Earlier around 8 pm a 2nd floor nurse brought her to the unit because she was trying to get to the ED because someone was going to bring her some personal items. I explained that her family could drop off items w/ security and we will go get them or they might bring them up.
[2020-09-22 07:00] VITALS: BP 113/74
[2020-09-22] MEDS: HYDROcodone/APAP 5/325MG 1 TAB TABLET PO PRN (07:12)
[2020-09-22] MEDS: FLUTICASONE 50MCG/NASAL SPRAY 16GM BOTTLE. NS SCH (09:25)
[2020-09-22] MEDS: MULTIVITAMIN with MINERAL TABLET. PO SCH (09:25)
[2020-09-22] MEDS: FOLIC ACID 1 MG TABLET. PO SCH (09:25)
[2020-09-22] MEDS: THIAMINE 100 MG TABLET. PO SCH (09:25)
[2020-09-22 11:00] VITALS: BP 124/67
--- NOTE | 2020-09-22 11:30 | NUR ---
HETAL following. Discussed with RN, pt from home, room air, regular diet. RN anticipates discharge home today with self care. [facility] and has a family independence case manager. No further SW needs. HETAL will continue to follow. Addendum: 09/22/20 at 1439 by SMITH FONG Per RN, pt is not wanting to go home, she wants ETOH treatment. HETAL contacted Troy with the PAT team to determine if this is possible. RN notified. HETAL will continue to follow. Addendum: 09/22/20 at 1525 by SMITH FONG Caren BISHOP) met with pt, pt's family independence case manager Yamini can do the [facility] assessment tomorrow (09/23/20) for ETOH treatment. Pt is going to live with her father, and will be discharged just before 10pm so he can collect her. Caren has coordinated with RN regarding this. No further SW needs.
[2020-09-22] MEDS ORDERED: GABA-585 PO (11:56)
[2020-09-22] MEDS ORDERED: NALT50TA PO (11:56)
[2020-09-22] MEDS ORDERED: MIRT-7 PO (11:56)
[2020-09-22] MEDS ORDERED: LORA-434 PO (11:56)
[2020-09-22] MEDS: IV NORMAL SALINE 1000ML BAG 1,000 ML IV SCH (13:20)
[2020-09-22 15:00] VITALS: BP 118/77
--- NOTE | 2020-09-22 19:00 | NUR ---
DISCHARGE INSTRUCTIONS GIVEN AT THIS TIME, PATIENT HAS DECIDED TO NOT WAIT FOR HER FATHER WHO WAS TO PICK HER UP AT 10PM, PATIENT REQUESTED A CAB PASS, ALL PERSONAL BELONGINGS GATHERED BY THE PATIENT AND PLACED IN BAGS FOR DISCHARGE.
--- NOTE | 2020-09-22 19:38 | NUR ---
PATIENT LEAVES THE UNIT PER W/C AND ACCOMPANIED BY THIS FABRICS AND MATERIAL CUTTER, EMOTIONAL SUPPORT GIVEN, FOLLOW UP APPOINTMENTS ENCOURAGED, PATIENT ENCOURAGED TO REFRAIN FROM ETOH CONSUMPTION.
--- NOTE | 2020-10-10 15:45 | PDOC3 ---
Discharge Summary Visit Information Date of Admission: Sep 18, 2020 Date of Discharge: Sep 22, 2020 Admitting Diagnosis: Alcohol withdrawal Final Diagnosis Problems Medical Problems: (1) Alcohol withdrawal Status: Acute (2) Alcohol withdrawal seizure Status: Acute Brief Hospital Course Allergies Allergies Coded Allergies Type Severity Reaction Last Updated Verified No Known Drug Allergies 12/02/15 No Brief Hospital Course Ms Briggs is a 39-year-old female who drinks a fifth of vodka a day. Basically, she was in the parking lot at a local grocery store. She had 2 witnessed seiz ures. She has now been brought in by ambulance. Admitted the patient for alcohol withdrawal protocol. 09/19: No acute events overnight. No agitated or aggressive episodes. Patient seen and examined bedside and she was resting comfortably. Patient's chart, labs, images were reviewed and discussed with RN 09/20: No acute events overnight. No agitation or seizure episodes. Patient does complain of sinus pressure and headache. Will administer fluticasone and saline wash and Tylenol as needed. Patient's chart, labs, images were reviewed and discussed with RN 09/21: No acute events overnight. Patient symptoms have improved which includes her headache and nausea. Patient's chart, labs, images were reviewed and discussed with RN. On day of discharge patient attempted to leave the hospital to smoke, counseled on nicotine patch use, required only 1 po dose of ativan for CIWA scale, discharged into the care of her father to go to [facility] for ETOH cessation treatment. Problem list: Acute seizure episodes EtOH withdrawal EtOH abuse Normocytic anemia due to chronic disease Acute electrolyte derangementhyponatremia, hypochloremiaimproved Transaminitis with AST ALT ratio suggestive of alcohol abuse Physical exam Vital Signs: Stable CVS: RR, No MRG, normal S1,s2 Lungs: Clear, Other Greater than 30 minutes spent on d/c to [facility] for ETOH cessation Discharge Information Condition at Discharge: Stable Follow Up: Weeks (1) Disposition/Orders: D/C to a Residential Scheduled Gabapentin (Gabapentin ) 100 Mg Capsule, 100 MG PO TID for ETOH for 30 Days, #90 Ref 2 Prescribed by: EZE FRANCO MD on 09/22/20 1156 Mirtazapine (Mirtazapine) 15 Mg Tablet, 1 TAB PO QHS for Mood for 30 Days, #30 Ref 3 Prescribed by: EZE FRANCO MD on 09/22/20 1156 Naltrexone Hcl (Naltrexone Hcl) 50 Mg Tablet, 1 TAB PO DAILY for ETOH abstinence for 30 Days, #30 Ref 2 Prescribed by: EZE FRANCO MD on 09/22/20 1156 Scheduled PRN Lorazepam (Ativan) 1 Mg Tablet, 1 MG PO PRN Q1HR PRN for Alcohol withdrawal for 2 Days, #6 Prescribed by: EZE FRANCO MD on 09/22/20 1157 Justicifation of Admission Dx: Justifications for Admission: Justification of Admission Dx: Yes CHF: Hemodynamic Instability Altered Mental Status: Altered Mental Status EZE FRANCO MD Oct 10, 2020 15:45
== END 2020-09-22 19:51 | disposition home or self-care (01) | DRG 101 ==
LOC: ER 05:29 → ED HOLD 11:43 → 5 NORTH 14:00 → OBSVTOIN 09-19 14:41
PROVIDERS: ADMIT Internal Medicine; ATTEND Internal Medicine
DX: G40.89 Other seizures (principal); E87.1 Hypo-osmolality and hyponatremia; F10.139 Alcohol abuse with withdrawal, unspecified; D63.8 Anemia in other chronic diseases classified elsewhere; E87.8 Other disorders of electrolyte and fluid balance, not elsewhere classified; R74.01 Elevation of levels of liver transaminase levels; J45.909 Unspecified asthma, uncomplicated; R32 Unspecified urinary incontinence; Z87.440 Personal history of urinary (tract) infections; Z87.891 Personal history of nicotine dependence; Z98.891 History of uterine scar from previous surgery; Z81.1 Family history of alcohol abuse and dependence
CPT/HCPCS: 36415; 70450; 71045; 72125; 80048; 80053; 80307; 81001; 81025; 83735; 85025; 90471; 90686; 93005; 96361; 96374; 96375; 96376; 99285; G0378; G0379; G0480; J1885; J2060; J2270; J2405; J2765; J7030; 73562-50